=== PATIENT | female | born 1945 | race Caucasian/White ===

== ENCOUNTER → 2016-12-12 | Outpatient (REF) | payer MEDICARE, OTHER ==
[~2016-12-12] MED LIST: /ESCI20TA OR; /LAMO10TA OR; /LAMO15TA OR; /WARF25TA OR; ABILIFY PO; BISA5TA OR; CALCCHW12 OR; METFORMIN PO; MILKSUS OR; MIRALEX PO; MULTLIQ7 PO; PAIN325T OR; PERC5TAB8 OR; PERC7.5T8 OR; PRIL20CA OR; SENN8.6T5 OR; SYNT150T OR; VITA100T OR
[2016-12-18 00:06] LABS: BLASTOMYCES ANTIBODY LEVEL Negative (Neg:<1:1); CRYPTOCOCCUS ANTIGEN SER Negative (Negative); HISTOPLASMOSIS ANTIBODY Negative (Neg:<1:1); SJOGREN'S ANTI SS-A <0.2 AI (0.0-0.9); SJOGREN'S ANTI SS-B <0.2 AI (0.0-0.9)
[2016-12-18 10:14] LABS: AUREOBASIDIUM PULLULANS Negative (Negative); MICROPOLYSPORA FAENI AB Negative (Negative); PIGEON SERUM AB Negative (Negative); THERMOACTINOMYCES SACCHARI Negative (Negative); THERMOACTINOMYCES VULGARIS Negative (Negative)
[2016-12-20 15:56] LABS: COCCIDIOMYCOSIS ANTIBODY SEE SEPARATE REPORT (NEGATIVE)
== END ==
LOC: M LAB REF 17:11
PROVIDERS: ATTEND Internal Medicine Pulmonary Disease
DX: R91.8 Other nonspecific abnormal finding of lung field (principal)

== ENCOUNTER → 2017-01-09 | Outpatient (CLI) | payer MEDICARE, OTHER ==
[~2017-01-09] MED LIST changes: +ACETAMINOPHEN 325 MG TAB As Ordered ONE; +LIDOCAINE 1% MDV 20ML VIAL As Ordered ONE
--- NOTE | 2017-01-09 11:54 | REP ---
POST BIOPSY CHEST: Post biopsy expiratory PA view of the chest is performed. There is no pneumothorax status post right lung biopsy. Cardiac silhouette is prominent in size. Left single lead pacemaker is noted. There are degenerative changes of the spine. IMPRESSION: No pneumothorax status post right lung biopsy. Signed by Tera Valera MD 01/09/2017 03:56 P
--- NOTE | 2017-01-09 15:03 | REP ---
CT GUIDED RIGHT LOWER LOBE LUNG BIOPSY: The procedure was performed under the direct supervision of Dr. Valera. The patient has a history of multiple bilateral pulmonary nodules seen on a previous CT scan from [facility] performed on 10/22/2016. The risks and benefits of the procedure were explained to the patient and informed consent was obtained. The largest pulmonary nodule in the right lower lobe was localized using CT guidance. The skin was prepped and draped in a sterile fashion. 1% Xylocaine was used as a local anesthetic. Using CT guidance a 19/20-gauge coaxial needle biopsy system was inserted and advanced into the nodule. Three core biopsy samples were obtained and sent to the lab. The patient tolerated the procedure well and there were no immediate complications. After the appropriate amount of monitored convalescence the patient was discharged from the department. Reviewed by SOPHIE Puckett 01/09/2017 03:24 PEdited and Signed by Tera Valera MD 01/09/2017 03:54 P
== END ==
LOC: M RADPRO 08:15
PROVIDERS: ATTEND Internal Medicine Pulmonary Disease
DX: J98.4 Other disorders of lung (principal); J84.10 Pulmonary fibrosis, unspecified; Z79.899 Other long term (current) drug therapy; Z88.5 Allergy status to narcotic agent; Z88.8 Allergy status to other drugs, medicaments and biological substances; L25.8 Unspecified contact dermatitis due to other agents

== ENCOUNTER 2017-12-11 12:09 | Emergency (ER) | payer MEDICARE, OTHER ==
[2017-12-11 13:16] LABS: BASO % 0.5 % (0.0-1.0); EOS # 0.1 10^3/uL (0.0-0.50); EOS % 1.5 % (0.0-3.0); HEMATOCRIT 40.4 % (36.0-47.0); HEMOGLOBIN 13.1 g/dl (12.0-15.5); IMMATURE GRANULOCYTE % 0.2 % (0-3.0); LYMPH # 1.4 10^3/uL (1.5-4.5); LYMPH % 22.5 % (24.0-44.0); MEAN CORPUSCULAR HEMOGLOBIN 29.7 pg (27.0-33.0); MEAN CORPUSCULAR HGB CONC 32.4 g/dl (32.0-36.5); MEAN CORPUSCULAR VOLUME 91.6 fl (80.0-96.0); MONO # 0.6 10^3/uL (0.0-0.8); NEUTROPHILS % 66.3 % (36.0-66.0); PLATELET COUNT, AUTOMATED 174 10^3/uL (150-450); RED BLOOD COUNT 4.41 10^6/uL (4.00-5.40); RED CELL DISTRIBUTION WIDTH 13.6 % (11.5-14.5); WHITE BLOOD COUNT 6.1 10^3/uL (4.0-10.0)
[2017-12-11 13:18] LABS: VENOUS HCO3 26.5 MEQ/L (23.0-27.0); VENOUS O2 SATURATION 57.5 % (60.0-80.0); VENOUS PARTIAL PRESSURE CO2 50.7 mmHg (38.0-50.0); VENOUS PARTIAL PRESSURE O2 30.8 mmHg (30.0-50.0); VENOUS PH 7.336 UNITS (7.330-7.430); VENOUS STANDARD HCO3 23.5 MEQ/L; VENOUS TOTAL CO2 28.1 MEQ/L (24.0-28.0)
[2017-12-11 13:43] LABS: LACTIC ACID SEPSIS PROTOCOL 1.4 MMOL/L (0.4-2.0)
[2017-12-11 13:45] LABS: ALBUMIN 3.8 GM/DL (3.2-5.2); ALBUMIN/GLOBULIN RATIO 0.97 (1.00-1.93); ALKALINE PHOSPHATASE 70 U/L (45-117); ALT/SGPT 24 U/L (12-78); ANION GAP 8 MEQ/L (8-16); AST/SGOT 20 U/L (7-37); BILIRUBIN,DIRECT 0.2 MG/DL (0.0-0.2); BILIRUBIN,TOTAL 0.7 MG/DL (0.2-1.0); BLOOD UREA NITROGEN 16 MG/DL (7-18); CALCIUM LEVEL 8.8 MG/DL (8.8-10.2); CARBON DIOXIDE LEVEL 28 MEQ/L (21-32); CHLORIDE LEVEL 99 MEQ/L (98-107); CPK CREATINE PHOSPHOKINASE 257 U/L (26-192); CREATININE FOR GFR 1.06 MG/DL (0.55-1.30); GLOMERULAR FILTRATION RATE 54.6 (>39); GLUCOSE, FASTING 181 MG/DL (70-100); POTASSIUM SERUM 3.7 MEQ/L (3.5-5.1); SODIUM LEVEL 135 MEQ/L (136-145); TOTAL PROTEIN 7.7 GM/DL (6.4-8.2); TROPONIN I < 0.02 NG/ML (< 0.10)
[2017-12-11 13:51] LABS: CK-MB VALUE MASS 1.7 NG/ML (<3.6); MB/CK RELATIVE INDEX 0.66 (< OR =4); NT-PRO BNP 4625 PG/ML (<125)
[2017-12-11 14:08] LABS: C REACTIVE PROTEIN QUANTITATIV 1.07 MG/DL (0.00-0.30); INR 1.01; PROTHROMBIN TIME 13.4 SECONDS (12.4-14.5)
[2017-12-11 14:28] LABS: ERYTHROCYTE SEDIMENTATION RATE 20 mm/hr (0-30)
== END 2017-12-11 17:31 | disposition home or self-care (01) ==
LOC: M ED 12:09
DX: J40 Bronchitis, not specified as acute or chronic (principal); R91.8 Other nonspecific abnormal finding of lung field; R60.9 Edema, unspecified; E11.9 Type 2 diabetes mellitus without complications; I51.7 Cardiomegaly; F33.9 Major depressive disorder, recurrent, unspecified; G47.30 Sleep apnea, unspecified; Z98.0 Intestinal bypass and anastomosis status; Z98.890 Other specified postprocedural states; Z95.0 Presence of cardiac pacemaker; Z88.8 Allergy status to other drugs, medicaments and biological substances; Z88.5 Allergy status to narcotic agent; Z79.890 Hormone replacement therapy; Z79.899 Other long term (current) drug therapy
CPT/HCPCS: 71045

== ENCOUNTER → 2018-12-23 | Outpatient (CLI) | payer MEDICARE, OTHER ==
[~2018-12-23] MED LIST changes: -/ESCI20TA OR; -/LAMO10TA OR; -/LAMO15TA OR; -/WARF25TA OR; -ACETAMINOPHEN 325 MG TAB As Ordered ONE; +AUGM875T28 PO; +BACT400T PO; +CLOP75TA2 PO; +COUM1TAB18 OR; +GLIM2TAB PO; +HYDR-3713 PO; +IRON1TAB PO; +LAMI1TAB7 OR; +LAMI1TAB8 OR; +LEXA1TAB2 OR; -LIDOCAINE 1% MDV 20ML VIAL As Ordered ONE; +LOSA50TA88 PO; +METF500T13 PO; +METO1TAB87 PO; +PRED20TA PO; +TESS100C PO; +TRAM50TA2 PO; +VICTOZA 18MG/3ML SC; +VITA-176 PO
[2018-12-23 09:08] LABS: HEMATOCRIT 38.2 % (36.0-47.0); HEMOGLOBIN 12.1 g/dl (12.0-15.5); MEAN CORPUSCULAR HEMOGLOBIN 30.5 pg (27.0-33.0); MEAN CORPUSCULAR HGB CONC 31.7 g/dl (32.0-36.5); MEAN CORPUSCULAR VOLUME 96.2 fl (80.0-96.0); PLATELET COUNT, AUTOMATED 224 10^3/uL (150-450); RED BLOOD COUNT 3.97 10^6/uL (4.00-5.40); WHITE BLOOD COUNT 5.6 10^3/uL (4.0-10.0)
[2018-12-23 09:28] LABS: ALBUMIN 3.6 GM/DL (3.2-5.2); ALT/SGPT 15 U/L (12-78); BILIRUBIN,TOTAL 0.7 MG/DL (0.2-1.0); BLOOD UREA NITROGEN 10 MG/DL (7-18); CALCIUM LEVEL 9.3 MG/DL (8.8-10.2); CARBON DIOXIDE LEVEL 32 MEQ/L (21-32); CHLORIDE LEVEL 102 MEQ/L (98-107); CREATININE FOR GFR 0.83 MG/DL (0.55-1.30); GLOMERULAR FILTRATION RATE > 60.0 (>39); GLUCOSE, FASTING 103 MG/DL (70-100); POTASSIUM SERUM 4.3 MEQ/L (3.5-5.1); SODIUM LEVEL 138 MEQ/L (136-145)
--- NOTE | 2018-12-23 09:31 | REP ---
Clinical: Preoperative assessment for left hip arthroplasty . Comparison: 12/11/2017 . Technique: PA and lateral. Findings: The mediastinum and cardiac silhouette are normal. Pacemaker and loop recorder again noted in stable satisfactory position. The lung espinal are clear and without acute consolidation, effusion, or pneumothorax. The skeletal structures are intact and normal. Impression: 1. No acute cardiopulmonary process. Electronically Signed by Jonathan Chaves MD 12/23/2018 09:23 A
[2018-12-23 09:35] LABS: INR 1.13; PROTHROMBIN TIME 14.2 SECONDS (11.8-14.0)
[2018-12-23 10:37] LABS: ERYTHROCYTE SEDIMENTATION RATE 35 mm/hr (0-30)
--- NOTE | 2018-12-24 23:54 | ECGEPIP ---
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 ISOLATED PVCS WERE NOTED OTHERWISE NO REMARKABLE CHANGES Electronically Signed on 12-24-2018 23:54:01 EDT by Shon Pastrana
== END ==
LOC: M LAB 08:32
PROVIDERS: ATTEND Orthopaedic Surgery
DX: M16.12 Unilateral primary osteoarthritis, left hip (principal); Z95.0 Presence of cardiac pacemaker

== ENCOUNTER 2019-01-11 08:52 | Inpatient (IN) | payer MEDICARE, OTHER ==
--- NOTE | 2019-01-07 13:53 | HPE ---
DATE OF ADMISSION: 01/11/2019 ADMISSION DIAGNOSIS: Osteoarthritis left hip. HISTORY: This is a 73-year-old female patient with progressively worsening left hip pain and stiffness. She failed to improve with conservative management. She elected for surgery for continued symptoms. She has pain with weightbearing activities and activities of daily living. She has been consented by Dr. Mari for a left total hip arthroplasty. X-rays notable for end-stage degenerative changes of the left hip. Medical optimization not present for review from Dr. Fitzpatrick. Medical conditions include symptomatic osteoarthritis of the left hip, coronary artery disease with pacemaker, hypertension, hypothyroidism, depression, diabetes. PAST SURGICAL HISTORY: Includes gastric bypass surgery, partial hysterectomy, removal of gallbladder, right knee replacement, right hip replacement, pacemaker implantation. ALLERGIES: No current drug allergies. MEDICATIONS: - losartan 50 mg 1 tablet once per day - clopidogrel 75 mg, she stopped that two days ago - levothyroxine 150 mcg 1 tablet once per day - Lexapro 10 mg once per day - Prilosec 20 mg 1 tablet daily - glimepiride 2 mg 1 tablet at breakfast - Mitosin 18/3 mL 1.8 mg subcutaneous daily - metoprolol 25 mg one tablet once per day FAMILY HISTORY: Noncontributory. SOCIAL HISTORY: She does not smoke. She does not use alcohol. REVIEW OF SYSTEMS: Denies fever or chills. Denies chest pain, shortness of breath or cough. Denies difficulty breathing. She has some benign nasal congestion but no fevers or chills. No productive cough. No chest pain. No change in her bowel or bladder habits. She has pain mainly in her left hip with activities of daily living. PHYSICAL EXAMINATION: Exam today reveals alert well-nourished, well-developed female patient in distress secondary to pain. She ambulates with a walker. She has irritability when transitions from the seated to standing position. There is irritability on hip range of motion on the left side. The skin around the hip is intact. No erythema, edema or ecchymosis. She can sensate light touch on exam. It is well-perfused left lower extremity. Neck is supple without adenopathy or jugular venous distention (JVD). Lungs are clear to auscultation without rales or wheeze. Heart: Regular rate and rhythm. Abdomen: Bowel sounds are present. Vital signs: Blood pressure 140/80, pulse 77, respirations 18, height 67 inches, weight 166 pounds, temperature 99.1. LABORATORY DATA: Glucose 103, BUN 10, creatinine 0.83, sodium 138, potassium 4.3, ProTime 14.2, INR 1.13, sed rate of 35, WBC count of 5.6, RBC count of 3.97, hemoglobin 12.1, hematocrit 38.2. Chest x-ray showed no acute cardiopulmonary disease process noted. Electrocardiogram (EKG) notable for a pacemaker tracing. IMPRESSION: Symptomatic osteoarthritis of the left hip. PLAN: She has been consented by Dr. Mari for a left total hip arthroplasty.
[2019-01-11] VITALS (7 sets, daily range): BP systolic 120–164; BP diastolic 48–77
[~2019-01-11] VITALS: Ht 157.5 cm; Wt 89.1 kg
[2019-01-11] MEDS: LEVOTHYROXINE 150MCG TABLET (0.15MG) PO SCH (06:00)
[2019-01-11] MEDS ORDERED: ceFAZolin 2 GM/D5W 50 ML IV BAG (J0690 PER 500MG) As Ordered ONE (09:20)
[2019-01-11] MEDS ORDERED: TRANEXAMIC ACID 100 MG/ML 10ML VIAL As Ordered ONE (09:45)
[2019-01-11] MEDS ORDERED: ceFAZolin 1GM INJ (J0690 PER 500MG) As Ordered ONE (09:46)
[2019-01-11] MEDS ORDERED: EPINEPHrine INJ 1 MG/ML 1ML AMP As Ordered ONE (09:46)
[2019-01-11] MEDS ORDERED: BUPIVACAINE LIPOSOME/PF 1.3% 20ML VIAL (13.3MG/ML)(EXPAREL)(C9290 PER1MG) As Ordered ONE (09:46)
[2019-01-11] MEDS ORDERED: ACET1TAB55 PO (10:14)
[2019-01-11] MEDS ORDERED: PROPOFOL 200 MG/20 ML VIAL As Ordered ONE (10:14)
[2019-01-11] MEDS ORDERED: LIDOCAINE 2% INJ 100 MG/5 ML SDV (FOR ANES.) As Ordered ONE (10:14)
[2019-01-11] MEDS ORDERED: fentaNYL 100 MCG/2 ML INJECTION (J3010) As Ordered ONE (10:15)
[2019-01-11] MEDS ORDERED: MIDAZOLAM INJ 2 MG/2 ML VIAL (J2250) As Ordered ONE (10:15)
[2019-01-11] MEDS ORDERED: CALC600C3 PO (10:20)
[2019-01-11] MEDS ORDERED: LEXA1TAB PO (10:20)
[2019-01-11] MEDS ORDERED: IRON27TA2 PO (10:20)
[2019-01-11] MEDS ORDERED: SYNT150T PO (10:21)
[2019-01-11] MEDS ORDERED: MULTCAP PO (10:28)
[2019-01-11] MEDS ORDERED: B-12100T2 PO (10:28)
[2019-01-11] MEDS ORDERED: OMEP-218 PO (10:28)
--- NOTE | 2019-01-11 11:06 | HPE ---
DATE OF SERVICE: 01/11/2019 The patient is seen and examined. She wished to go ahead with a left total hip arthroplasty. She understands the nature of this, the risks of bleeding, infection, damage to nerves and vessels, persistent pain, wear loosening, dislocation, leg length inequality, blood clots, medical problems, , among others. Plan on proceeding with a left hip replacement. Preoperative clearance was obtained.
[2019-01-11] MEDS ORDERED: KETAMINE HCL 200 MG/20 ML VIAL As Ordered ONE (11:17)
[2019-01-11] MEDS ORDERED: ROCURONIUM BROMIDE 50 MG/5 ML VIAL As Ordered ONE (11:18)
[2019-01-11] MEDS ORDERED: ACETAMINOPHEN 1000MG 100ML IV BTL (OFIRMEV) (J0131 PER 10MG) As Ordered ONE (13:13)
[2019-01-11] MEDS ORDERED: ACETAMINOPHEN *IV* 1,000 MG IV ONE ×2 (13:30)
[2019-01-11] MEDS ORDERED: PERCOCET 5MG/325MG TAB PO PRN (13:30)
[2019-01-11] MEDS ORDERED: FLEET ENEMA PR PRN (13:30)
[2019-01-11] MEDS ORDERED: LR 1,000 ML IV SCH (13:30)
[2019-01-11] MEDS ORDERED: HYDROmorphone HCL 2 MG/ML 1ML VIAL (J1170) IV PRN (13:30)
[2019-01-11] MEDS ORDERED: ONDANSETRON 4MG/2ML VIAL (J2405) IV PRN (13:30)
[2019-01-11] MEDS ORDERED: fentaNYL 100 MCG/2 ML INJECTION (J3010) IV PRN (13:30)
[2019-01-11] MEDS ORDERED: HYDROMORPHONE HCL 0.5 MG/ 0.5 ML SYRINGE (J1170 PER 1) IV PRN (13:30)
[2019-01-11] MEDS ORDERED: oxyCODONE 5MG TAB As Ordered ONE (13:41)
[2019-01-11] MEDS: oxyCODONE 5MG TAB PO PRN ×2 (13:42→15:03)
--- NOTE | 2019-01-11 13:53 | RO ---
DATE OF PROCEDURE: 01/11/2019 PREOPERATIVE DIAGNOSIS: Left hip osteoarthritis. POSTOPERATIVE DIAGNOSIS: Left hip osteoarthritis. PROCEDURE: Left total hip arthroplasty using a [place] size 5 standard offset 36 + 1.5 ball, 52 acetabular component. SURGEON: Leoncio Mari MD MAINTENANCE TEAM MEMBER: Honorio Mattson PA-C ANESTHESIA: Spinal. ESTIMATED BLOOD LOSS (EBL): 200. COMPLICATIONS: None. INDICATIONS: This 73-year woman has had advanced arthritis of her left hip and could not tolerate the pain. She wished to go ahead with surgical treatment. She understood the nature and risks associated with this. DESCRIPTION OF PROCEDURE: The patient was taken to the operating room, placed in the right lateral decubitus position on the [place] positioner. All areas were padded appropriately. The left hip was prepped and draped in the usual sterile fashion. Then, a time-out was performed. I created a longitudinal incision over the lateral aspect of the hip. She had copious subcutaneous tissue that made this quite a bit more difficult. I was able to dissect down to the fascia and elevate a small plane above this. I then incised the fascia lengthwise, divided the anterior 40% of the abductor off the anterior aspect the hip, and exposed the labrum, gradually externally rotating the femur as we did so. I then dislocated the hip with the plant attendant or assistant operator's help and used a canal-initiating reamer followed by the canal-finding reamer and then the lateralizing reamer. I then reamed up to a size 5, which had good bony purchase. The neck cut was made at about a half a fingerbreadth up from the lesser trochanter. The head was removed. We then repaired the acetabulum, removed soft tissue from around the acetabulum, and then used the reamers, and I reamed up to a 51 which had good bleeding bone and good concentric reaming. I impacted in the 52 cup which is what we used on the other side and appropriate amount of anteversion and horizontal tilt. It was well seated. I had irrigated copiously prior to this. I placed the apex hole eliminator followed by the polyethylene of 36 x 52. This was impacted in place and seated. I then used the broaches on the femoral side and was able to broach up to a size 4 which had excellent solid fit proximally, and I was not able to even quite get it down to the level of the cut. Overall, very pleased with the fit and fill of the size 4. I then did a trial reduction. The +1.5 seemed to have excellent stability and range of motion. It was quite difficult to trial due to the size of her leg and body habitus but seemed to be quite stable in extension external rotation, flexion internal rotation. I did have to remove some osteophytes anteriorly on the acetabulum. I then removed the trial components and packed in the actual stem standard offset size 4 [place], and it was well seated. I then impacted on the femoral head +1.5 36, made sure this was seated, and reduced the hip, put the hip through a range of motion. I then irrigated, placed the Exparel in the deep tissues, tranexamic acid (TXA) in the deep tissues, and repaired the minimus and abductor with #1 Vicryl suture through several bony holes, then irrigated, repaired the fascia julián with #1 Vicryl suture and running Stratafix suture for a watertight closure. Irrigated, closed the subcutaneous with 2-0 Vicryl and the skin with dayana. Sterile dressing was applied. She was taken to the recovery room in stable condition. There were no known complications. The plan will be routine postoperative. The plant attendant or assistant operator was instrumental in holding retractors and assisting in reducing and dislocating the hip and assisting in wound closure. This is coded as an unusually difficult procedure due to her body habitus and weight. She had significant fatty tissue around her hip and thigh, which made the wound quite deep. I had to make much more extensive exposure and made reducing and dislocating the hip much more challenging in addition to judging soft tissue tension.
--- NOTE | 2019-01-11 13:54 | REP ---
Portable right hip, two views, post: There is a total hip arthroplasty. The components are tightly applied and in satisfactory positions alignment on both views. Skin dayana are incidentally identified. Electronically Signed by Tera Irby MD 01/11/2019 01:45 P
[2019-01-11] MEDS ORDERED: LABETALOL HCL 100 MG/20 ML VIAL As Ordered ONE (13:57)
[2019-01-11] MEDS: LABETALOL HCL 100 MG/20 ML VIAL IV SCH ×12 (14:00→20:00)
[2019-01-11] MEDS: LR 1,000 ML IV SCH (15:39)
[2019-01-11] MEDS: OMEPRAZOLE 20 MG CAP PO SCH (16:18)
[2019-01-11] MEDS: HYDROmorphone HCL 2 MG/ML 1ML VIAL (J1170) IV PRN ×2 (16:20→20:00)
[2019-01-11] MEDS: ONDANSETRON 4MG/2ML VIAL (J2405) IV PRN (16:28)
[2019-01-11] MEDS ORDERED: METO1TAB32 PO (16:48)
[2019-01-11] MEDS: **hydrALAZINE HCL** 25 MG TAB PO SCH (17:49)
[2019-01-11] MEDS: GLIMEPIRIDE 2 MG TAB PO SCH (17:49)
[2019-01-11] MEDS: ACETAMINOPHEN TAB 650MG DOSE (2X325MG) PO PRN (20:51)
[2019-01-11] MEDS: NORCO, ANEXSIA 5/325MG TABLET (HYDROcodone/ACETAMINOPHEN) PO PRN (22:15)
[2019-01-12] MEDS: HYDROmorphone HCL 2 MG/ML 1ML VIAL (J1170) IV PRN (00:35)
[2019-01-12] MEDS: **hydrALAZINE HCL** 25 MG TAB PO SCH ×5 (00:36→23:31)
--- NOTE | 2019-01-12 00:50 | HPEPDOC ---
General Date of Admission Jan 11, 2019 at 08:52 Date of Service: Jan 11, 2019 Chief Complaint The patient is a 73-year-old female admitted with a reason for visit of Arthritis Left Hip. Source: Patient, RN/MD, Old records Severity: Moderate History of Present Illness Consultation Report Consultation requested by Dr Mari Consultation for management of medical comorbidities. HPI: 73 year old female with PMH of Diabetes, Hypertension, Hyperlipidemia, Morbid obesity s/p gastric bypass surgery has lost about 100 lbs, hypothyroid, depression, CAD, pacemaker, JUANJOSE on CPAP, chronic venous insufficiency has been admitted for elective left total knee replacement. Patient had an uneventful surgery. Patient now complaining of some pain in the left hip at the surgical site about 6/10 in intensity, dull aching in nature, Worsened with movement, No radiation. Home Medications Scheduled Calcium Carbonate/Vitamin D3 (Calcium 600+D Softgel) 1 Each Capsule, 1 CAP PO BID, (Reported) Cholecalciferol (Vitamin D3) (Vitamin D3) 1,000 Unit Chw, 1,000 UNIT PO 3XW, (Reported) Cyanocobalamin (Vitamin B-12) (Vitamin B-12) 100 Mcg Tablet, 1 TAB PO DAILY, (Reported) Escitalopram Oxalate (Lexapro) 10 Mg Tablet, 1 TAB PO DAILY, (Reported) Ferrous Gluconate (Iron) 236 Mg Tablet, 27 MG PO DAILY, (Reported) Glimepiride (Glimepiride) 2 Mg Tablet, 2 MG PO BID, (Reported) Levothyroxine Sodium (Synthroid) 150 Mcg Tablet, 1 TAB PO DAILY, (Reported) Losartan Potassium (Losartan Potassium) 50 Mg Tab, 50 MG PO DAILY, (Reported) Metoprolol Succinate (Metoprolol Succinate) 25 Mg Tab.er.24h, 25 MG PO DAILY, (Reported) Multivitamin (Multivitamins) 1 Each Capsule, 1 CAP PO DAILY, (Reported) Omeprazole (Omeprazole) 20 Mg Capsule.dr, 1 CAP PO BID, (Reported) Rivaroxaban (Xarelto) 10 Mg Tablet, 10 MG PO DAILY [Victoza 18MG/3ML] , 1.2 MG SC DAILY, (Reported) Scheduled PRN Acetaminophen (Acetaminophen) 325 Mg Tablet, 2 TAB PO Q4-6HP PRN for pain or fever, (Reported) Hydrocodone/Acetaminophen (Hydrocodone-Acetamin 5-325 mg) 1 Each Tablet, 1-2 TAB PO Q4H PRN for PAIN Hydrocodone/Acetaminophen (Hydrocodone-Acetamin 5-325 mg) 1 Each Tablet, 1-2 TAB PO Q4H PRN for PAIN Allergies Coded Allergies: aspirin (Verified Adverse Reaction, Unknown, GI UPSET/ULCER, 01/11/19) morphine (Verified Adverse Reaction, Unknown, CONFUSION, 01/11/19) Past Medical History Medical History Diabetes, Hypertension, Hyperlipidemia, Morbid obesity s/p gastric bypass surgery lost about a 100 lbs, hypothyroid, depression, CAD, JUANJOSE on CPAP, chronic venous insufficiency, Afib status post ablation ans pacemaker Surgical History gastric bypass surgery, partial hysterectomy, cholecystectomy right knee replacement, right hip replacement, pacemaker implantation. Family History Significant Family History: Diabetes, Hypertension Social History * Smoker: Denies Alcohol: Denies Drugs: denies A-FIB/CHADSVASC A-FIB History Current/History of A-Fib/PAF?: Yes Current PO Anticoag Therapy: No Review of Systems Constitutional: Denies: Chills, Fever, Night Sweats Eyes: Denies: Pain, Vision change ENT: Denies: Head Aches, Ear Pain, Dysphagia Skin: Denies: Rash, Lesions, Breakdown Pulmonary: Denies: Dyspnea, Cough Cardiovascular: Denies: Chest Pain, Palpitations, Orthopnea, Paroxysmal Noc. Dyspnea, Lt Headedness Gastrointestinal: Denies: Nausea, Vomiting, Abdominal Pain, Diarrhea Hematologic: Denies: Bruising, Bleeding Excessively Musculoskeletal: Reports: Joint Pain; Denies: Neck Pain, Back Pain Physical Examination General Exam: Positive: Alert, Cooperative, No Acute Distress ENT Exam: Positive: Atraumatic, Mucous membr. moist/pink, Pharynx Normal Neck Exam: Positive: Supple; Negative: JVD, thyromegaly Chest Exam: Positive: Clear to auscultation, Normal air movement Heart Exam: Positive: Rate Normal, Regular Rhythm, Normal S1, Normal S2; Negative: Murmurs, Rubs Abdomen Exam: Positive: Normal bowel sounds, Soft; Negative: Tenderness, Hepatospenomegaly Extremity Exam: Positive: Edema, Normal pulses; Negative: Clubbing, Cyanosis Skin Exam: Positive: Nl turgor and temperature; Negative: Breakdown, Lesion Vital Signs Vital Signs Date Time Temp Pulse Resp B/P (MAP) Pulse Ox O2 Delivery O2 Flow Rate FiO2 01/11/19 10:29 96.8 61 18 169/81 (110 95 Laboratory Data CBC/BMP Laboratory Tests 01/11/19 09:21 Assessment/Plan 73 year old female with PMH of Diabetes, Hypertension, Hyperlipidemia, Morbid obesity s/p gastric bypass surgery has lost about 100 lbs, hypothyroid, depression, CAD, pacemaker, JUANJOSE on CPAP, chronic venous insufficiency, h/o afib status post ablation and has pacemaker in place has been admitted for elective left total knee replacement. Patient had an uneventful surgery. Hospitalist service is following for management of medical comorbidities. S/P Left total hip replacement pain control and DVT prophylaxis as per ortho service Bowel regimen. Diabetes continue glimepiride Hypertension continue losartan, metroprolol succinate and hydra CAD non obstructive , had cardiac cath before no intervention needed. Afib s/p ablation and Pacemaker was on plavix will hold now as going to be on oral anticoagulant. Hypothyroid continue synthroid JUANJOSE continue own CPAP Obesity complicating care Depression continue home meds. GERD continue PPI Chronic venous insufficiency congenital from teenager. Plan / VTE VTE Prophylaxis Ordered?: Yes ANGELO HINSON MD Jan 11, 2019 13:49
[2019-01-12 02:00] VITALS: BP 154/61
[2019-01-12] MEDS: ACETAMINOPHEN TAB 650MG DOSE (2X325MG) PO PRN ×2 (02:29→11:49)
[2019-01-12] MEDS: LR 1,000 ML IV SCH (03:05)
[2019-01-12] MEDS: NORCO, ANEXSIA 5/325MG TABLET (HYDROcodone/ACETAMINOPHEN) PO PRN ×5 (04:14→21:12)
[2019-01-12] MEDS: ONDANSETRON 4MG/2ML VIAL (J2405) IV PRN (04:41)
[2019-01-12] MEDS ORDERED: ONDANSETRON 4 MG TAB (S0181) PO PRN (05:45)
[2019-01-12 06:00] VITALS: BP 154/60
[2019-01-12 06:11] LABS: BASO % 0.2 % (0.0-1.0); EOS % 0.1 % (0.0-3.0); HEMATOCRIT 33.6 % (36.0-47.0); HEMOGLOBIN 11.3 g/dl (12.0-15.5); LYMPH # 1.1 10^3/uL (1.5-4.5); LYMPH % 9.3 % (24.0-44.0); MEAN CORPUSCULAR HEMOGLOBIN 31.3 pg (27.0-33.0); MEAN CORPUSCULAR HGB CONC 33.6 g/dl (32.0-36.5); MEAN CORPUSCULAR VOLUME 93.1 fl (80.0-96.0); MONO # 1.1 10^3/uL (0.0-0.8); MONO % 9.7 % (0.0-5.0); NEUTROPHILS # 9.1 10^3/uL (1.8-7.7); NEUTROPHILS % 80.3 % (36.0-66.0); PLATELET COUNT, AUTOMATED 197 10^3/uL (150-450); RED BLOOD COUNT 3.61 10^6/uL (4.00-5.40); WHITE BLOOD COUNT 11.3 10^3/uL (4.0-10.0)
[2019-01-12] MEDS: LEVOTHYROXINE 150MCG TABLET (0.15MG) PO SCH (06:19)
[2019-01-12] MEDS ORDERED: HYDR-3713 PO (06:23)
[2019-01-12] MEDS ORDERED: XARE10TA PO (06:27)
[2019-01-12 06:38] LABS: BLOOD UREA NITROGEN 11 MG/DL (7-18); CALCIUM LEVEL 8.6 MG/DL (8.8-10.2); CARBON DIOXIDE LEVEL 29 MEQ/L (21-32); CHLORIDE LEVEL 102 MEQ/L (98-107); CREATININE FOR GFR 0.83 MG/DL (0.55-1.30); GLOMERULAR FILTRATION RATE > 60.0 (>39); GLUCOSE, FASTING 138 MG/DL (70-100); POTASSIUM SERUM 4.4 MEQ/L (3.5-5.1); SODIUM LEVEL 136 MEQ/L (136-145)
[2019-01-12] MEDS: GLIMEPIRIDE 2 MG TAB PO SCH ×2 (08:36→17:41)
[2019-01-12] MEDS: ESCITALOPRAM OXALATE 10 MG TAB (LEXAPRO) PO SCH (08:37)
[2019-01-12] MEDS: OMEPRAZOLE 20 MG CAP PO SCH (08:37)
[2019-01-12] MEDS: METOPROLOL SUCC *XL* 25MG TAB (TopROL *XL*) PO SCH (08:38)
[2019-01-12] MEDS ORDERED: MORPHINE 4 MG/ML 1ML VIAL/SYRINGE (J2270) IV PRN (08:45)
[2019-01-12] MEDS: MOM 30ML SUSPENSION UDC PO SCH (09:00)
[2019-01-12] MEDS ORDERED: LOSARTAN 50 MG TAB PO SCH (09:00)
[2019-01-12] MEDS: MIRALAX *UNIT DOSE* 17GM PACKET PO SCH (09:00)
--- NOTE | 2019-01-12 09:56 | IPNPDOC ---
Date Seen The patient was seen on 01/12/19. Progress Note SUBJECTIVE: Ms. Gutierrez, a 73-year-old female who was consulted for medical management s/p left total hip replacement yesterday (01/11), was seen this morning on bedside rounds. She was laying in bed with a washcloth over her head and appeared in mild distress due to hip pain. She states that the hip pain was present after she woke up from surgery with constant 9/10 intensity this morning with no radiation. It was described as deep bone pain with the same quality as before the replacement. She states that the Dilaudid she received yesterday helped the pain substantially but she is currently having breakthrough pain and requested pain medication. She has a poor reaction to morphine, which she has received in the past and has given her confusion. She has been unable to move the leg due to extreme pain this morning but has been able to ambulate to the bathroom previously. She had an episode of dizziness, diaphoresis, and lightheadedness this morning and she felt like she was going to pass out. She also states she had an episode of nausea after receiving pain medication on an empty stomach yesterday evening which has since resolved. She has had a bowel movement this morning. She is also is requesting that her Omeprazole be changed from one a day 40mg to twice a day 20mg which is what she is used to taking at home. Patient denies chest pain, shortness of breath, current nausea, vomiting, syncope, fever, chills, or abdominal pain. OBJECTIVE PHYSICAL EXAMINATION: VITAL SIGNS: Please see below. GENERAL: Patient is seen lying in bed and is in mild distress due to 9/10 left hip pain, AAOx3, cooperative, speaking in full sentences and conversational HEENT: NC, AT, moist mucous membranes, no JVD CARDIOVASCULAR: Clear to auscultation bilaterally, no rales, rhonchi or wheezing appreciated RESPIRATORY: Regular rate and rhythm, Normal S1S2, no murmurs, rubs or gallops appreciated ABDOMINAL: Normal bowel sounds in all quadrants, soft and non-tender to light or deep palpation, no rebound, rigidity or guarding, no hepatosplenomegaly or masses appreciated EXTREMITIES: +1 pitting edema of b/l lower extremities, signs of chronic venous insufficiency, no clubbing or cyanosis, left hip bandaged, no erythema or ecchymosis around the surgical site. Unable to move left hip on exam due to 9/10 pain PSYCHOLOGICAL: Appropriate affect LABORATORY DATA, IMAGING STUDIES, MICROBIOLOGY: Please see below. IMAGING: - Hip x-ray: Portable right hip, two views, post: There is a total hip arthroplasty. The components are tightly applied and in satisfactory positions alignment on both views. Skin dayana are incidentally identified. DVT prophylaxis ordered?: Katherin ASSESSMENT AND PLAN: Ms. Gutierrez is a 73-year-old female with past medical history of Diabetes, Hypertension, Hyperlipidemia, Morbid obesity s/p gastric bypass surgery (has lost approximately 100 lbs), hypothyroidism, depression, CAD, JUANJOSE on CPAP, chronic venous insufficiency, history of A fib. s/p ablation and pacemaker implantation, who has been admitted for elective left total hip replacement. Patient had an uneventful surgery. Hospitalist service managing medical comorbidities. PROBLEMS: 1. S/P Left total hip replacement -C/w pain control and DVT prophylaxis as per ortho service -Bowel regimen. Patient has had a bowel movement today and reports no associated GI symptoms other than nausea last evening which is resolved 2. Diabetes -continue glimepiride 3. Hypertension -continue losartan, metoprolol succinate and hydralazine 4. CAD -non obstructive, had cardiac cath before no intervention needed. 5. A. fib s/p ablation and pacemaker implantation -was on plavix -will hold now as going to be on oral anticoagulant. 6. Hypothyroid -continue synthroid 7. JUANJOSE -continue own CPAP 8. Obesity -complicating care 9. Depression -continue home meds. 10. GERD -continue PPI 11. Chronic venous insufficiency -congenital from teenager. DISPOSITION: Patient is in substantial 9/10 left hip pain today s/p left total hip replacement yesterday. She has been able to ambulate to the bathroom however is currently in pain and requesting pain medication adjustment. Her surgery was uneventful and she has had a bowel movement this morning. She clinically is improving, however is having significant pain that will need to be managed before she is able to progress with PT/OT. Following orthopedic recommendations for pain control and DVT prophylaxis. VS, I&O, 24H, Fishbone Vital Signs/I&O Vital Signs Date Time Temp Pulse Resp B/P (MAP) Pulse Ox O2 Delivery O2 Flow Rate FiO2 01/12/19 08:39 18 01/12/19 08:37 150/66 01/12/19 06:00 99.1 60 96 I&O- Last 24 Hours up to 6 AM 01/12/19 06:00 Intake Total 3085 ml Output Total 550 ml Balance 2535 ml Laboratory Data 24H LABS Laboratory Tests 2 01/11/19 17:37: Bedside Glucose (Misc Panel) 179H 01/11/19 20:50: Bedside Glucose (Misc Panel) 220H 01/12/19 05:38: Immature Granulocyte % (Auto) 0.4, White Blood Count 11.3H, Red Blood Count 3. 61L, Hemoglobin 11.3L, Hematocrit 33.6L, Mean Corpuscular Volume 93.1, Mean Corpuscular Hemoglobin 31.3, Mean Corpuscular Hemoglobin Concent 33.6, Red Cell Distribution Width 12.7, Platelet Count 197, Neutrophils (%) (Auto) 80.3H, Lymphocytes (%) (Auto) 9.3L, Monocytes (%) (Auto) 9.7H, Eosinophils (%) (Auto) 0.1, Basophils (%) (Auto) 0.2, Neutrophils # (Auto) 9.1H, Lymphocytes # (Auto) 1.1L, Monocytes # (Auto) 1.1H, Eosinophils # (Auto) 0.0, Basophils # (Auto) 0.0, Nucleated Red Blood Cells % (auto) 0.0, Anion Gap 5L, Glomerular Filtration Rate > 60.0, Blood Urea Nitrogen 11, Creatinine 0.83, Sodium Level 136, Potassium Level 4.4, Chloride Level 102, Carbon Dioxide Level 29, Calcium Level 8.6L CBC/BMP Laboratory Tests 01/12/19 05:38 Red Blood Count 3.61 L, Mean Corpuscular Volume 93.1, Mean Corpuscular Hemoglobin 31.3, Mean Corpuscular Hemoglobin Concent 33.6, Red Cell Distribution Width 12.7, Neutrophils (%) (Auto) 80.3 H, Lymphocytes (%) (Auto) 9.3 L, Monocytes (%) (Auto) 9.7 H, Eosinophils (%) (Auto) 0.1, Basophils (%) (Auto) 0.2, Neutrophils # (Auto) 9.1 H, Lymphocytes # (Auto) 1.1 L, Monocytes # (Auto) 1.1 H, Eosinophils # (Auto) 0.0, Basophils # (Auto) 0.0, Calcium Level 8.6 L Attending Note Attending Note I have personally seen and examined the patient this am. I agree with the finding and the plan of care as documented above in the resident's/medical student's note. JOCY SEGAL OMS-3 Jan 12, 2019 09:56 ANGELO HINSON MD Jan 12, 2019 17:01
[2019-01-12 10:34] VITALS: BP 145/107
[2019-01-12 10:35] VITALS: BP 144/60
[2019-01-12 15:26] VITALS: BP 125/43
[2019-01-12] MEDS: RIVAROXABAN 10 MG TAB (XARELTO) PO SCH (17:41)
[2019-01-12 22:00] VITALS: BP 127/62
[2019-01-13] MEDS: NORCO, ANEXSIA 5/325MG TABLET (HYDROcodone/ACETAMINOPHEN) PO PRN ×6 (01:10→22:56)
[2019-01-13] MEDS: **hydrALAZINE HCL** 25 MG TAB PO SCH ×4 (05:41→22:57)
[2019-01-13] MEDS: LEVOTHYROXINE 150MCG TABLET (0.15MG) PO SCH (05:42)
[2019-01-13 06:00] VITALS: BP 170/68
[2019-01-13] MEDS ORDERED: XARE10TA PO (06:35)
[2019-01-13] MEDS ORDERED: HYDR-3713 PO (06:36)
[2019-01-13 07:04] LABS: BASO % 0.3 % (0.0-1.0); EOS % 0.2 % (0.0-3.0); HEMATOCRIT 34.6 % (36.0-47.0); LYMPH # 1.2 10^3/uL (1.5-4.5); MEAN CORPUSCULAR HEMOGLOBIN 30.1 pg (27.0-33.0); MEAN CORPUSCULAR HGB CONC 31.8 g/dl (32.0-36.5); MEAN CORPUSCULAR VOLUME 94.5 fl (80.0-96.0); MONO % 8.9 % (0.0-5.0); NEUTROPHILS # 8.8 10^3/uL (1.8-7.7); NEUTROPHILS % 79.1 % (36.0-66.0); PLATELET COUNT, AUTOMATED 187 10^3/uL (150-450); RED BLOOD COUNT 3.66 10^6/uL (4.00-5.40)
[2019-01-13 07:24] LABS: BLOOD UREA NITROGEN 14 MG/DL (7-18); CARBON DIOXIDE LEVEL 28 MEQ/L (21-32); CHLORIDE LEVEL 102 MEQ/L (98-107); CREATININE FOR GFR 0.86 MG/DL (0.55-1.30); GLOMERULAR FILTRATION RATE > 60.0 (>39); GLUCOSE, FASTING 155 MG/DL (70-100); POTASSIUM SERUM 4.3 MEQ/L (3.5-5.1); SODIUM LEVEL 135 MEQ/L (136-145)
--- NOTE | 2019-01-13 07:26 | IPNPDOC ---
Date Seen The patient was seen on 01/13/19. Progress Note SUBJECTIVE: Ms. Gutierrez was seen on bedside rounds this morning. She states that she is feeling much better today and appears to be in less pain today. She states that her left hip pain is a 0/10 currently at rest and increases to a 5/10 on movement with no radiation, which she believes will complicate working with physical therapy today. She states that the deep bone pain she was experiencing yesterday is improved and the pain today feels to be more in her leg muscles. She denies chest pain, shortness of breath, diaphoresis, lightheadedness, nausea, vomiting, abdominal pain, fever, and chills. OBJECTIVE PHYSICAL EXAMINATION: VITAL SIGNS: Please see below. GENERAL: Patient is seen lying in bed, no apparent distress, AAOx3, cooperative, speaking in full sentences and conversational HEENT: NC, AT, moist mucous membranes, no JVD CARDIOVASCULAR: Clear to auscultation bilaterally, no rales, rhonchi or wheezing appreciated RESPIRATORY: Regular rate and rhythm, Normal S1S2, no murmurs, rubs or gallops appreciated ABDOMINAL: Normal bowel sounds in all quadrants, soft and non-tender to light or deep palpation, no rebound, rigidity or guarding, no hepatosplenomegaly or masses appreciated EXTREMITIES: +1 pitting edema of b/l lower extremities, signs of chronic venous insufficiency, no clubbing or cyanosis, left hip bandaged, no erythema or ecchymosis around the surgical site. Unable to move left hip on exam due to 5/10 PSYCHOLOGICAL: Appropriate affect LABORATORY DATA, IMAGING STUDIES, MICROBIOLOGY: Please see below. IMAGING: - Hip x-ray: Portable right hip, two views, post: There is a total hip arthroplasty. The components are tightly applied and in satisfactory positions alignment on both views. Skin dayana are incidentally identified. DVT prophylaxis ordered?: Katherin ASSESSMENT AND PLAN: Ms. Gutierrez is a 73-year-old female with past medical history of Diabetes, Hypertension, Hyperlipidemia, Morbid obesity s/p gastric bypass surgery (has lost approximately 100 lbs), hypothyroidism, depression, CAD, JUANJOSE on CPAP, chronic venous insufficiency, history of A fib. s/p ablation and pacemaker implantation, who has been admitted for elective left total hip replacement. Patient had an uneventful surgery. Hospitalist service managing medical comorbidities. PROBLEMS: 1. S/P Left total hip replacement -C/w pain control and DVT prophylaxis as per ortho service -Bowel regimen. Patient has had a bowel movement yesterday and reports no associated GI symptoms. -C/w PT, once cleared plan for subacute rehab 2. Diabetes -continue glimepiride 3. Hypertension -continue losartan, metoprolol succinate and hydralazine 4. CAD -non obstructive, had cardiac cath before no intervention needed. 5. A. fib s/p ablation and pacemaker implantation -was on plavix -c/w Xarelto 6. Hypothyroid -continue synthroid 7. JUANJOSE -continue own CPAP 8. Obesity -complicating care 9. Depression -continue home meds. 10. GERD -continue PPI 11. Chronic venous insufficiency -congenital from teenager. DISPOSITION: Patient is clinically improving today and states that her only pain is on movement of her left hip. Continue to work with PT, following orthopedic recommendations for pain control and DVT prophylaxis. Plan for subacute rehab once cleared with PT. Discharge per orthopedic recommendation. VS, I&O, 24H, Kamaljitbone Vital Signs/I&O Vital Signs Date Time Temp Pulse Resp B/P (MAP) Pulse Ox O2 Delivery O2 Flow Rate FiO2 01/13/19 06:11 18 01/13/19 06:00 98.5 65 170/68 (102) 99 I&O- Last 24 Hours up to 6 AM 01/13/19 06:00 Intake Total 1280 ml Output Total 1900 ml Balance -620 ml Laboratory Data 24H LABS Laboratory Tests 2 01/12/19 11:49: Bedside Glucose (Misc Panel) 185H 01/12/19 16:31: Bedside Glucose (Misc Panel) 168H 01/12/19 21:29: Bedside Glucose (Misc Panel) 176H 01/13/19 06:12: Immature Granulocyte % (Auto) 0.5, White Blood Count 11.0H, Red Blood Count 3.66L, Hemoglobin 11.0L, Hematocrit 34.6L, Mean Corpuscular Volume 94.5, Mean Corpuscular Hemoglobin 30.1, Mean Corpuscular Hemoglobin Concent 31.8L, Red Cell Distribution Width 13.0, Platelet Count 187, Neutrophils (%) (Auto) 79.1H, Lymphocytes (%) (Auto) 11.0L, Monocytes (%) (Auto) 8.9H, Eosinophils (%) (Auto) 0.2, Basophils (%) (Auto) 0.3, Neutrophils # (Auto) 8.8H, Lymphocytes # (Auto) 1.2L, Monocytes # (Auto) 1.0H, Eosinophils # (Auto) 0.0, Basophils # (Auto) 0.0, Nucleated Red Blood Cells % (auto) 0.0 01/13/19 06:13: Anion Gap 5L, Glomerular Filtration Rate > 60.0, Blood Urea Nitrogen 14, Creatinine 0.86, Sodium Level 135L, Potassium Level 4.3, Chloride Level 102, Carbon Dioxide Level 28, Calcium Level 9.0 CBC/BMP Laboratory Tests 01/13/19 06:12 Red Blood Count 3.66 L, Mean Corpuscular Volume 94.5, Mean Corpuscular Hemoglobin 30.1, Mean Corpuscular Hemoglobin Concent 31.8 L, Red Cell Distribution Width 13.0, Neutrophils (%) (Auto) 79.1 H, Lymphocytes (%) (Auto) 11.0 L, Monocytes (%) (Auto) 8.9 H, Eosinophils (%) (Auto) 0.2, Basophils (%) (Auto) 0.3, Neutrophils # (Auto) 8.8 H, Lymphocytes # (Auto) 1.2 L, Monocytes # (Auto) 1.0 H, Eosinophils # (Auto) 0.0, Basophils # (Auto) 0.0 01/13/19 06:13 Calcium Level 9.0 Attending Note Attending Note I have personally seen and examined the patient this am. I agree with the finding and the plan of care as documented above resident's/ medical student's note. Patient is feeling much better today. Pain is controlled, having bowel movements. Plan of discharge as per ortho service JOCY SEGAL OMS-3 Jan 13, 2019 07:26 ANGELO HINSON MD Jan 13, 2019 14:01
[2019-01-13] MEDS: OMEPRAZOLE 20 MG CAP PO SCH (08:03)
[2019-01-13] MEDS: METOPROLOL SUCC *XL* 25MG TAB (TopROL *XL*) PO SCH (08:04)
[2019-01-13] MEDS: ESCITALOPRAM OXALATE 10 MG TAB (LEXAPRO) PO SCH (08:04)
[2019-01-13] MEDS: GLIMEPIRIDE 2 MG TAB PO SCH ×2 (08:04→17:37)
[2019-01-13] MEDS: MOM 30ML SUSPENSION UDC PO SCH (08:05)
[2019-01-13] MEDS: MIRALAX *UNIT DOSE* 17GM PACKET PO SCH (08:05)
[2019-01-13] MEDS: LOSARTAN 50 MG TAB PO SCH (08:53)
[2019-01-13] MEDS: ACETAMINOPHEN TAB 650MG DOSE (2X325MG) PO PRN (08:54)
[2019-01-13 14:15] VITALS: BP 126/67
--- NOTE | 2019-01-13 16:16 | REP ---
Left hip two views: There is a total hip arthroplasty with the components tightly applied and in in satisfactory position alignment both projections. Skin dayana are incidentally noted. Electronically Signed by Tera Irby MD 01/13/2019 04:08 P
[2019-01-13] MEDS: RIVAROXABAN 10 MG TAB (XARELTO) PO SCH (17:37)
[2019-01-13 22:00] VITALS: BP 125/60
[2019-01-14] MEDS: NORCO, ANEXSIA 5/325MG TABLET (HYDROcodone/ACETAMINOPHEN) PO PRN ×5 (04:23→23:47)
[2019-01-14 06:00] VITALS: BP 119/56
[2019-01-14] MEDS: **hydrALAZINE HCL** 25 MG TAB PO SCH ×4 (06:00→23:48)
[2019-01-14] MEDS: LEVOTHYROXINE 150MCG TABLET (0.15MG) PO SCH (06:03)
[2019-01-14 06:47] LABS: BASO % 0.2 % (0.0-1.0); EOS % 0.4 % (0.0-3.0); HEMATOCRIT 32.7 % (36.0-47.0); HEMOGLOBIN 10.5 g/dl (12.0-15.5); LYMPH % 10.7 % (24.0-44.0); MEAN CORPUSCULAR HEMOGLOBIN 30.1 pg (27.0-33.0); MEAN CORPUSCULAR HGB CONC 32.1 g/dl (32.0-36.5); MEAN CORPUSCULAR VOLUME 93.7 fl (80.0-96.0); MONO # 0.8 10^3/uL (0.0-0.8); NEUTROPHILS # 7.6 10^3/uL (1.8-7.7); NEUTROPHILS % 80.3 % (36.0-66.0); PLATELET COUNT, AUTOMATED 190 10^3/uL (150-450); RED BLOOD COUNT 3.49 10^6/uL (4.00-5.40); WHITE BLOOD COUNT 9.5 10^3/uL (4.0-10.0)
[2019-01-14 07:11] LABS: BLOOD UREA NITROGEN 17 MG/DL (7-18); CALCIUM LEVEL 8.5 MG/DL (8.8-10.2); CARBON DIOXIDE LEVEL 30 MEQ/L (21-32); CHLORIDE LEVEL 101 MEQ/L (98-107); CREATININE FOR GFR 0.68 MG/DL (0.55-1.30); GLOMERULAR FILTRATION RATE > 60.0 (>39); GLUCOSE, FASTING 157 MG/DL (70-100); POTASSIUM SERUM 4.1 MEQ/L (3.5-5.1); SODIUM LEVEL 135 MEQ/L (136-145)
[2019-01-14] MEDS: LOSARTAN 50 MG TAB PO SCH (08:20)
[2019-01-14] MEDS: ESCITALOPRAM OXALATE 10 MG TAB (LEXAPRO) PO SCH (08:20)
[2019-01-14] MEDS: OMEPRAZOLE 20 MG CAP PO SCH (08:20)
[2019-01-14] MEDS: GLIMEPIRIDE 2 MG TAB PO SCH ×2 (08:21→17:43)
[2019-01-14] MEDS: METOPROLOL SUCC *XL* 25MG TAB (TopROL *XL*) PO SCH (08:21)
[2019-01-14] MEDS: MIRALAX *UNIT DOSE* 17GM PACKET PO SCH (08:22)
[2019-01-14] MEDS: MOM 30ML SUSPENSION UDC PO SCH (08:22)
[2019-01-14 14:00] VITALS: BP 104/52
[2019-01-14] MEDS: RIVAROXABAN 10 MG TAB (XARELTO) PO SCH (17:43)
--- NOTE | 2019-01-14 18:22 | IPNPDOC ---
Text Note Date of Service The patient was seen on 01/14/19. NOTE HOSPITALIST PROGRESS NOTE SUBJECTIVE: Ms. Gutierrez examined at bedside. No new complaints or issues. Feels well and is awaiting rehab, aiming for [place]. No f/c/n/v/abd pain/cp/sob. OBJECTIVE PHYSICAL EXAMINATION: VITAL SIGNS: Please see below. GENERAL: Resting comfy, NAD, A&Ox3, fully conversant HEENT: NC, AT, moist mucous membranes, no JVD CARDIOVASCULAR: Clear to auscultation bilaterally, no rales, rhonchi or wheezing appreciated RESPIRATORY: Regular rate and rhythm, Normal S1S2, no murmurs, rubs or gallops appreciated ABDOMINAL: Normal bowel sounds in all quadrants, soft and non-tender to light or deep palpation, no rebound, rigidity or guarding EXTREMITIES: +1 pitting edema of b/l lower extremities, signs of chronic venous insufficiency, no clubbing or cyanosis, left hip bandaged, no erythema or ecchymosis around the surgical site PSYCHOLOGICAL: Appropriate affect LABORATORY DATA, IMAGING STUDIES, MICROBIOLOGY: Please see below. IMAGING: - Hip x-ray: Portable right hip, two views, post: There is a total hip arthroplasty. The components are tightly applied and in satisfactory positions alignment on both views. Skin dayana are incidentally identified. DVT prophylaxis ordered?: Xarelto ASSESSMENT AND PLAN: Ms. Gutierrez is a 73-year-old female with past medical history of Diabetes, Hypertension, Hyperlipidemia, Morbid obesity s/p gastric bypass surgery (has lost approximately 100 lbs), hypothyroidism, depression, CAD, JUANJOSE on CPAP, chronic venous insufficiency, history of A fib. s/p ablation and pacemaker implantation, who has been admitted for elective left total hip replacement. Patient had an uneventful surgery. Hospitalist service managing medical comorbidities. 1. S/P Left total hip arthroplasty 01/11, post-op day 3 -C/w pain control and DVT prophylaxis as per ortho service -Bowel regimen on board -C/w PT, once cleared plan for subacute rehab 2. Diabetes -continue glimepiride 3. Hypertension -controlled on losartan, metoprolol succinate and hydralazine 4. CAD -non obstructive, had cardiac cath before with no intervention needed. Stable 5. A. fib s/p ablation and pacemaker implantation -was on plavix & Xarelto. Currently only on Xarelto per ortho 6. Hypothyroid -continue synthroid 7. JUANJOSE -continue own CPAP 8. Obesity -complicating care 9. Depression -continue home meds. 10. GERD -continue PPI 11. Chronic venous insufficiency -congenital from teenager. DISPOSITION: Is stable & doing well from medical standpoint. Continue PT and activity as per Ortho. PFS working to get pt to her requesting subacute rehab in [place]. Discharge per orthopedic recommendation. VS,Fishbone, I+O VS, Fishbone, I+O Laboratory Tests 01/14/19 06:34 Red Blood Count 3.49 L, Mean Corpuscular Volume 93.7, Mean Corpuscular Hemoglobin 30.1, Mean Corpuscular Hemoglobin Concent 32.1, Red Cell Distribution Width 13.1, Neutrophils (%) (Auto) 80.3 H, Lymphocytes (%) (Auto) 10.7 L, Monocytes (%) (Auto) 8.0 H, Eosinophils (%) (Auto) 0.4, Basophils (%) (Auto) 0.2, Neutrophils # (Auto) 7.6, Lymphocytes # (Auto) 1.0 L, Monocytes # (Auto) 0.8, Eosinophils # (Auto) 0.0, Basophils # (Auto) 0.0, Calcium Level 8.5 L Vital Signs Date Time Temp Pulse Resp B/P (MAP) Pulse Ox O2 Delivery O2 Flow Rate FiO2 01/14/19 17:45 131/90 01/14/19 17:44 16 01/14/19 14:00 98.8 63 95 I&O- Last 24 Hours up to 6 AM 01/14/19 06:00 Intake Total 680 ml Output Total 400 ml Balance 280 ml Attending Note Attending Note I have personally seen and examined the patient this am. I agree with the finding and the plan of care as documented above in the resident's/medical student's note. today her hip pain is a little worse than yesterday . planned for dc to sub acute rehab. LAURYN STREET DO Jan 14, 2019 18:22 ANGELO HINSON MD Jan 14, 2019 19:34
[2019-01-14 22:00] VITALS: BP 108/78
[2019-01-15] MEDS: NORCO, ANEXSIA 5/325MG TABLET (HYDROcodone/ACETAMINOPHEN) PO PRN ×2 (05:24→09:22)
[2019-01-15] MEDS: **hydrALAZINE HCL** 25 MG TAB PO SCH (05:24)
[2019-01-15] MEDS: LEVOTHYROXINE 150MCG TABLET (0.15MG) PO SCH (05:24)
[2019-01-15 05:43] LABS: BASO % 0.3 % (0.0-1.0); EOS # 0.1 10^3/uL (0.0-0.50); HEMATOCRIT 32.5 % (36.0-47.0); HEMOGLOBIN 10.3 g/dl (12.0-15.5); LYMPH # 1.9 10^3/uL (1.5-4.5); LYMPH % 21.7 % (24.0-44.0); MEAN CORPUSCULAR HEMOGLOBIN 29.8 pg (27.0-33.0); MEAN CORPUSCULAR HGB CONC 31.7 g/dl (32.0-36.5); MEAN CORPUSCULAR VOLUME 93.9 fl (80.0-96.0); MONO # 0.6 10^3/uL (0.0-0.8); MONO % 7.1 % (0.0-5.0); NEUTROPHILS # 6.1 10^3/uL (1.8-7.7); NEUTROPHILS % 69.4 % (36.0-66.0); PLATELET COUNT, AUTOMATED 225 10^3/uL (150-450); RED BLOOD COUNT 3.46 10^6/uL (4.00-5.40); WHITE BLOOD COUNT 8.8 10^3/uL (4.0-10.0)
[2019-01-15 06:00] VITALS: BP 179/70
[2019-01-15 06:06] LABS: BLOOD UREA NITROGEN 18 MG/DL (7-18); CARBON DIOXIDE LEVEL 30 MEQ/L (21-32); CHLORIDE LEVEL 102 MEQ/L (98-107); CREATININE FOR GFR 0.81 MG/DL (0.55-1.30); GLOMERULAR FILTRATION RATE > 60.0 (>39); GLUCOSE, FASTING 166 MG/DL (70-100); POTASSIUM SERUM 4.1 MEQ/L (3.5-5.1); SODIUM LEVEL 136 MEQ/L (136-145)
[2019-01-15] MEDS: GLIMEPIRIDE 2 MG TAB PO SCH (07:55)
[2019-01-15 07:56] VITALS: BP 179/70
[2019-01-15] MEDS: ESCITALOPRAM OXALATE 10 MG TAB (LEXAPRO) PO SCH (07:56)
[2019-01-15] MEDS: OMEPRAZOLE 20 MG CAP PO SCH (07:56)
[2019-01-15] MEDS: METOPROLOL SUCC *XL* 25MG TAB (TopROL *XL*) PO SCH (07:56)
[2019-01-15] MEDS: LOSARTAN 50 MG TAB PO SCH (07:56)
[2019-01-15] MEDS: MOM 30ML SUSPENSION UDC PO SCH (07:57)
[2019-01-15] MEDS: MIRALAX *UNIT DOSE* 17GM PACKET PO SCH (07:58)
== END 2019-01-15 09:55 | DRG 470 ==
LOC: M OR 08:52 → M MS5PR 15:25
PROVIDERS: ADMIT Orthopaedic Surgery; ATTEND Orthopaedic Surgery
PROC: 0SRB02Z Replacement of Left Hip Joint with Metal on Polyethylene Synthetic Substitute, Open Approach (ICD-10-PCS; principal; 2019-01-11 11:00)
DX: M16.12 Unilateral primary osteoarthritis, left hip (principal); I25.10 Atherosclerotic heart disease of native coronary artery without angina pectoris; I10 Essential (primary) hypertension; E03.9 Hypothyroidism, unspecified; F32.9 Major depressive disorder, single episode, unspecified; E11.9 Type 2 diabetes mellitus without complications; R26.89 Other abnormalities of gait and mobility; E78.5 Hyperlipidemia, unspecified; G47.33 Obstructive sleep apnea (adult) (pediatric); E66.9 Obesity, unspecified; I87.2 Venous insufficiency (chronic) (peripheral); Z95.0 Presence of cardiac pacemaker; Z79.84 Long term (current) use of oral hypoglycemic drugs; Z79.899 Other long term (current) drug therapy; Z98.84 Bariatric surgery status; Z96.651 Presence of right artificial knee joint; Z96.641 Presence of right artificial hip joint; Z90.49 Acquired absence of other specified parts of digestive tract; Z88.5 Allergy status to narcotic agent; Z88.6 Allergy status to analgesic agent; Z68.36 Body mass index [BMI] 36.0-36.9, adult; Z79.02 Long term (current) use of antithrombotics/antiplatelets

== ENCOUNTER 2019-07-28 07:13 | Inpatient (IN) | payer MEDICARE, BC ==
--- NOTE | 2019-07-23 20:53 | HPE ---
DATE OF ADMISSION: 07/28/2019 ATTENDING PHYSICIAN: Dr. Leoncio Mari CHIEF COMPLAINT: Left knee pain and stiffness. HISTORY OF PRESENT ILLNESS: This is a pleasant 74-year-old female patient with progressively worsening left knee pain and stiffness that has failed to improve with conservative management. She has elected for left total knee arthroplasty for her continued symptoms and has been consented by Dr. Leoncio Mari. ALLERGIES: ADHESIVE, ASPIRIN, MORPHINE CURRENT MEDICATIONS: - omeprazole 20 mg one p.o. daily - Lexapro 10 mg one p.o. daily - levothyroxine 150 mcg one p.o. daily - clopidogrel 75 mg one p.o. daily - calcium D 301 p.o. daily - multivitamin two p.o. daily - vitamin B12 one p.o. daily - vitamin D3 one p.o. daily - metoprolol 25 mg one p.o. daily - duloxetine 20 mg one p.o. daily - amlodipine 5 mg one p.o. daily - losartan 100 mg one p.o. daily - Victoza as directed PAST MEDICAL HISTORY: Hypothyroidism, depression with anxiety, hypertension, hyperlipidemia, vertigo, obesity, atrial fibrillation, obstructive sleep apnea, pacemaker placement, lung nodules on CT, vitamin D deficiency, nonsustained V-tach. PAST SURGICAL HISTORY: Gastric bypass, hysterectomy, cholecystectomy, right knee total arthroplasty, right hip total arthroplasty, loop recorder, pacemaker, lung biopsy, cardiac ablation, left hip arthroplasty. FAMILY HISTORY: Father heart disease. Mother diabetes, hypertension. SOCIAL HISTORY: The patient does not use tobacco or alcohol. REVIEW OF SYSTEMS: Denies fever, chills, chest pain, shortness of breath, nausea, vomiting, diarrhea. No reports of any recent upper respiratory or urinary tract infected symptoms. PHYSICAL EXAMINATION: Height 5 feet 2-1/2 inches, weight 194.6, temperature 97 degrees, blood pressure 132/81, respirations 15, pulse 64. She is normocephalic, atraumatic and in no apparent distress. Neck is supple and nontender with no lymphadenopathy or jugular venous distention (JVD). Abdomen is soft and nontender. S1, S2 auscultated. Lungs are clear to auscultation bilaterally with no wheezes, rales, rhonchi. The left lower extremity is well perfused and has intact range of motion. The overlying skin is intact. LABORATORIES: White blood count 5.47, red blood count 4.30, hemoglobin 12.4, hematocrit 40.2, BUN 14, creatinine 0.772, INR 1.06. ESR 22. Chest x-ray with no focal consolidation. Echocardiogram is unavailable at today's visit. Medical optimization by Dr. Fitzpatrick reviewed today and on chart. Cardiology clearance and repeat echocardiogram per the patient completed but not available today for review. ASSESSMENT/PLAN: Symptomatic degenerative the left knee pain. PLAN: Consented for left knee total arthroplasty by Dr. Mari pending cardiology clearance. The patient will hold Plavix starting tomorrow for a week prior to surgery. Other preoperative instructions were discussed and the patient voiced understanding.
[~2019-07-28] VITALS: Ht 157.5 cm; Wt 89.5 kg
[~2019-07-28 07:13] MED LIST changes: +ACET1TAB55 PO; +B-12100T2 PO; +CALC600C3 PO; +CYMB1CAP4 PO; -GLIM2TAB PO; +GLIM2TAB4 PO; +IRON27TA2 PO; +LEXA1TAB PO; +LR 1,000 ML IV ONE; +METO1TAB32 PO; +MIDAZOLAM INJ 2 MG/2 ML VIAL (J2250) IV SCH; +MULTCAP PO; +NORV5TAB PO; +OMEP-218 PO; +SYNT150T PO; +VITA200038 PO; +XARE10TA PO; +ceFAZolin SOD 2 GM in IV 1 EA IV ONE; +fentaNYL 100 MCG/2 ML INJECTION (J3010) IV SCH
[2019-07-28 07:46] LABS: HEMATOCRIT 41.1 % (36.0-47.0); HEMOGLOBIN 12.8 g/dl (12.0-15.5); MEAN CORPUSCULAR HEMOGLOBIN 29.2 pg (27.0-33.0); MEAN CORPUSCULAR HGB CONC 31.1 g/dl (32.0-36.5); MEAN CORPUSCULAR VOLUME 93.6 fl (80.0-96.0); PLATELET COUNT, AUTOMATED 210 10^3/uL (150-450); RED BLOOD COUNT 4.39 10^6/uL (4.00-5.40); WHITE BLOOD COUNT 5.8 10^3/uL (4.0-10.0)
[2019-07-28] MEDS ORDERED: TRANEXAMIC ACID 100 MG/ML 10ML VIAL As Ordered ONE (07:48)
[2019-07-28] MEDS ORDERED: ceFAZolin 1GM INJ (J0690 PER 500MG) As Ordered ONE (07:48)
[2019-07-28] MEDS ORDERED: EPINEPHrine INJ 1 MG/ML 1ML VIAL As Ordered ONE (07:49)
[2019-07-28] MEDS ORDERED: BUPIVACAINE LIPOSOME/PF 1.3% 20ML VIAL (13.3MG/ML)(EXPAREL)(C9290 PER1MG) As Ordered ONE (07:49)
--- NOTE | 2019-07-28 07:56 | IPN ---
DATE: 07/28/2019 The patient is seen and examined. She wished to go ahead with a left total knee arthroplasty. She understands the nature of the procedure and the risks of bleeding, infection, damage to nerves, vessels, persistent pain, wear, loosening, blood clots, medical problems, among others. She understands that her morbid obesity significantly increases the risks of perioperative complications.
[2019-07-28 07:59] LABS: BLOOD UREA NITROGEN 15 MG/DL (7-18); CALCIUM LEVEL 8.6 MG/DL (8.8-10.2); CARBON DIOXIDE LEVEL 26 MEQ/L (21-32); CHLORIDE LEVEL 109 MEQ/L (98-107); CREATININE FOR GFR 0.77 MG/DL (0.55-1.30); GLOMERULAR FILTRATION RATE > 60.0 (>39); GLUCOSE, FASTING 137 MG/DL (70-100); POTASSIUM SERUM 4.4 MEQ/L (3.5-5.1); SODIUM LEVEL 139 MEQ/L (136-145)
[2019-07-28] MEDS ORDERED: fentaNYL 100 MCG/2 ML INJECTION (J3010) As Ordered ONE ×2 (08:46→09:44)
[2019-07-28] MEDS ORDERED: MIDAZOLAM INJ 2 MG/2 ML VIAL (J2250) As Ordered ONE ×2 (08:47→09:44)
[2019-07-28] MEDS ORDERED: propofoL 200 MG/20 ML VIAL As Ordered ONE (08:56)
[2019-07-28] MEDS ORDERED: ROCURONIUM BROMIDE 50 MG/5 ML VIAL As Ordered ONE (08:56)
[2019-07-28] MEDS ORDERED: dexameTHASONE 4 MG/ML 1ML VIAL (J1100) As Ordered ONE (09:44)
[2019-07-28] MEDS ORDERED: LIDOCAINE 2% INJ 100 MG/5 ML SDV (FOR ANES.) As Ordered ONE (09:44)
[2019-07-28] MEDS ORDERED: PHENYLephrine HCL 500 MCG/5 ML (100MCG/ML) SYRINGE (J2370) As Ordered ONE (09:44)
[2019-07-28] MEDS ORDERED: HYDROmorphone HCL 2 MG/ML 1ML VIAL (J1170) As Ordered ONE (09:44)
[2019-07-28] MEDS ORDERED: ONDANSETRON 4MG/2ML VIAL (J2405) As Ordered ONE (09:44)
[2019-07-28] MEDS ORDERED: SUGAMMADEX SODIUM 500 MG/5 ML VIAL (BRIDION) As Ordered ONE (10:33)
[2019-07-28] MEDS ORDERED: EPINEPHrine INJ 1 MG/ML 1ML VIAL ONE (10:35)
[2019-07-28] MEDS ORDERED: ROPIvacaine 0.5% 30 ML INJECTION (J2795 PER 1MG) ONE (10:35)
[2019-07-28] MEDS ORDERED: dexameTHASONE 10 MG/1 ML VIAL PRES.FREE (J1100) ONE (10:35)
[2019-07-28] MEDS ORDERED: ACETAMINOPHEN 1000MG 100ML IV BTL (OFIRMEV) (J0131 PER 10MG) As Ordered ONE (10:36)
[2019-07-28] MEDS ORDERED: HYDROMORPHONE HCL 0.5 MG/ 0.5 ML SYRINGE (J1170 PER 1) As Ordered ONE (11:11)
[2019-07-28] MEDS: HYDROMORPHONE HCL 0.5 MG/ 0.5 ML SYRINGE (J1170 PER 1) IV PRN ×4 (11:12→11:35)
[2019-07-28] MEDS ORDERED: LR 1,000 ML IV SCH (11:15)
[2019-07-28] MEDS ORDERED: fentaNYL 100 MCG/2 ML INJECTION (J3010) IV PRN (11:15)
[2019-07-28] MEDS ORDERED: oxyCODONE 5MG TAB PO PRN (11:15)
[2019-07-28] MEDS ORDERED: ONDANSETRON 4MG/2ML VIAL (J2405) IV PRN ×2 (11:15→12:15)
--- NOTE | 2019-07-28 11:41 | REP ---
LEFT KNEE, TWO VIEWS: Two views of the left knee are performed. There is placement of a total knee prosthesis. Osseous structures are intact and are well aligned. Prosthetic components are in good position. Metallic skin dayana are seen anteriorly. Linear vascular calcifications are seen posteromedially. Electronically Signed by Tera Valera MD 07/28/2019 11:00 P
[2019-07-28] MEDS: LR 1,000 ML IV SCH (12:15)
[2019-07-28 13:45] VITALS: BP 146/75
[2019-07-28] MEDS ORDERED: HYDROMORPHONE HCL 0.5 MG/ 0.5 ML SYRINGE (J1170 PER 1) IV PRN ×2 (14:15)
[2019-07-28 14:45] VITALS: BP 145/74
[2019-07-28 16:00] VITALS: BP 144/71
[2019-07-28 17:00] VITALS: BP 143/70
[2019-07-28] MEDS: ceFAZolin SOD 2 GM in IV 1 EA IV SCH (17:14)
[2019-07-28] MEDS: PERCOCET 5MG/325MG TAB PO PRN (17:18)
[2019-07-28 18:00] VITALS: BP 147/70
--- NOTE | 2019-07-28 19:14 | CR.PDOC ---
General Date of Consultation: Jul 28, 2019 Consultation REASON FOR CONSULTATION/CHIEF COMPLAINT: Physical evaluation HISTORY OF PRESENT ILLNESS: Patient 74 years old female with past history of hypothyroidism, anxiety, depression, hypertension, sleep apnea presented hospital for planned left knee arthroplasty. Surgery was done today, patient denies any fever, chills, nausea, vomiting, diarrhea or dysuria. ALLERGIES: Please see below. HOME MEDICATIONS: Please see below. PAST MEDICAL HISTORY: Hypothyroidism, depression with anxiety, hypertension, hyperlipidemia, vertigo, obesity, atrial fibrillation, obstructive sleep apnea, pacemaker placement, lung nodules on CT, vitamin D deficiency PAST SURGICAL HISTORY: Gastric bypass, hysterectomy, cholecystectomy, right knee total arthroplasty, right hip total arthroplasty, loop recorder, pacemaker, lung biopsy, cardiac ablation, left hip arthroplasty. FAMILY HISTORY: Father heart disease. Mother diabetes, hypertension. SOCIAL HISTORY: Tobacco use: Denies ETOH: Denies Illicit drug use: Denies REVIEW OF SYSTEMS: 10 point review system negative except listed above PHYSICAL EXAMINATION: VITAL SIGNS: Please see below. GENERAL APPEARANCE: not in apparent distress HEENT: Normocephalic, atraumatic. Mucous members moist and pink CARDIOVASCULAR: Regular rate and rhythm. No murmurs, rubs or gallops. Radial pulses are intact. There is no lower extremity edema LUNGS: Diminished lung sounds ABDOMEN: Abdomen is soft and nontender. MUSCULOSKELETAL: Limited range of motion of the left knee, dressing over left knee NEUROLOGICAL: Cranial nerves II-12 are grossly intact. Speech is not dysarthric LABORATORY DATA: Please see below. ASSESSMENT/PLAN: Patient 74 years old female with past history of hypothyroidism, anxiety, depression, hypertension, sleep apnea presented hospital for planned left knee arthroplasty. Surgery was done today, patient denies any fever, chills, nausea, vomiting, diarrhea or dysuria. Hypertension Continue home medication Blood pressures under control Obstructive sleep apnea CPAP overnight Atrial fibrillation Heart rate is under control Patient was not on the anticoagulation therapy due to frequent fall Hypothyroidism Continue levothyroxine Depression continue Lexapro Vital Signs/I&O Vital Signs Date Time Temp Pulse Resp B/P (MAP) Pulse Ox O2 Delivery O2 Flow Rate FiO2 07/28/19 17:48 18 07/28/19 16:00 98.3 64 144/71 (95) 95 Room Air 07/28/19 14:45 2.0 07/28/19 11:28 100 Laboratory Data Labs 24H Laboratory Tests 2 07/28/19 07:36: Nucleated Red Blood Cells % (auto) 0.0, Anion Gap 4L, Glomerular Filtration Rate > 60.0, Calcium Level 8.6L CBC/BMP Laboratory Tests 07/28/19 07:36 Allergies Coded Allergies: aspirin (Verified Adverse Reaction, Unknown, GI UPSET/ULCER, 01/11/19) morphine (Verified Adverse Reaction, Unknown, CONFUSION, 01/11/19) Home Medications Scheduled Amlodipine Besylate (Norvasc) 5 Mg Tablet, 5 MG PO DAILY, (Reported) Calcium Carbonate/Vitamin D3 (Calcium 600+D Softgel) 1 Each Capsule, 1 CAP PO BID for 30 Days, #60 (Reported) Cholecalciferol (Vitamin D3) (Vitamin D3) 2,000 Unit Tablet, 2,000 UNIT PO 3XW, (Reported) Clopidogrel Bisulfate (Clopidogrel) 75 Mg Tablet, 75 MG PO DAILY, (Reported) Cyanocobalamin (Vitamin B-12) (Vitamin B-12) 100 Mcg Tablet, 1 TAB PO DAILY for 30 Days, #30 (Reported) Duloxetine HCl (Cymbalta) 20 Mg Capsule.dr, 20 MG PO DAILY, (Reported) Escitalopram Oxalate (Lexapro) 10 Mg Tablet, 1 TAB PO DAILY for 30 Days, #30 (Reported) Ferrous Gluconate (Iron) 236 Mg Tablet, 27 MG PO DAILY, (Reported) Levothyroxine Sodium (Synthroid) 150 Mcg Tablet, 1 TAB PO DAILY for 30 Days, #30 (Reported) Losartan Potassium (Losartan Potassium) 50 Mg Tab, 100 MG PO DAILY, (Reported) Metoprolol Succinate (Metoprolol Succinate) 25 Mg Tab.er.24h, 25 MG PO DAILY for 30 Days, #30 (Reported) Multivitamin (Multivitamins) 1 Each Capsule, 1 CAP PO DAILY for 30 Days, #30 (Reported) Omeprazole (Omeprazole) 20 Mg Capsule.dr, 1 CAP PO BID for 30 Days, #60 (Reported) [Victoza 18MG/3ML] , 1.2 MG SC DAILY, (Reported) Scheduled PRN Acetaminophen (Acetaminophen) 325 Mg Tablet, 2 TAB PO Q4-6HP PRN for pain or fever for 24 Days, #100 (Reported) AMMY HOLLY DO Jul 28, 2019 19:14
[2019-07-28] MEDS ORDERED: DEXTROSE 50% 50 ML SYRINGE IV PRN (19:30)
[2019-07-28] MEDS ORDERED: GLUCOSE 4 GM CHEW TABLET PO PRN (19:30)
[2019-07-28] MEDS ORDERED: GLUCAGON FOR INJ 1 MG VIAL (J1610) SC PRN (19:30)
[2019-07-28] MEDS: OMEPRAZOLE 20 MG CAP PO SCH (20:38)
[2019-07-28] MEDS: SODIUM CHLORIDE 0.9% NASAL GEL 15GM (AYR) SCH (20:38)
[2019-07-28] MEDS: HumaLOG INSULIN (NovoLOG) PER UNIT SC SCH (20:38)
[2019-07-28 22:00] VITALS: BP 139/68
[2019-07-29] MEDS: ceFAZolin SOD 2 GM in IV 1 EA IV SCH (00:09)
[2019-07-29] MEDS: PERCOCET 5MG/325MG TAB PO PRN ×4 (00:09→17:53)
[2019-07-29] MEDS: ACETAMINOPHEN TAB 650MG DOSE (2X325MG) PO PRN (04:41)
[2019-07-29] MEDS: LR 1,000 ML IV SCH (05:51)
[2019-07-29 06:00] VITALS: BP 144/68
[2019-07-29] MEDS ORDERED: PERCOCET 5MG/325MG TAB PO PRN (06:15)
[2019-07-29] MEDS: LEVOTHYROXINE 150MCG TABLET (0.15MG) PO SCH (06:19)
[2019-07-29] MEDS: HumaLOG INSULIN (NovoLOG) PER UNIT SC SCH ×4 (07:30→21:00)
[2019-07-29] MEDS: ESCITALOPRAM OXALATE 10 MG TAB (LEXAPRO) PO SCH (08:01)
[2019-07-29] MEDS: LOSARTAN 50 MG TAB PO SCH (08:01)
[2019-07-29] MEDS: METOPROLOL SUCC *XL* 25MG TAB (TopROL *XL*) PO SCH (08:01)
[2019-07-29] MEDS: DULoxetine 20 MG CAP (CYMBALTA) PO SCH (08:01)
[2019-07-29] MEDS: amLODIPine 5 MG TAB PO SCH (08:02)
[2019-07-29] MEDS: OMEPRAZOLE 20 MG CAP PO SCH ×2 (08:02→20:29)
[2019-07-29] MEDS: MOM 30ML SUSPENSION UDC PO SCH ×2 (08:02→08:06)
[2019-07-29] MEDS: SODIUM CHLORIDE 0.9% NASAL GEL 15GM (AYR) SCH ×4 (08:03→20:29)
[2019-07-29] MEDS: MIRALAX *UNIT DOSE* 17GM PACKET PO SCH (08:06)
[2019-07-29] MEDS ORDERED: CLOPIDOGREL 75 MG TAB PO SCH (09:00)
--- NOTE | 2019-07-29 09:48 | RO ---
DATE OF PROCEDURE: 07/28/2019 PREOPERATIVE DIAGNOSIS: Left knee osteoarthritis, advanced. POSTOPERATIVE DIAGNOSIS: Left knee osteoarthritis, advanced. PROCEDURE: Left total knee arthroplasty using an Attune rotating platform posterior stabilized size 5 femur size 4 tibial tray size 12 polyethylene 35 patellar button. SURGEON: Dr. Leoncio Mari ENTERTAINMENT & MEDIA CORRESPONDENT: Honorio Mattson ANESTHESIA: General. ESTIMATED BLOOD LOSS: 50. COMPLICATIONS: None. PROCEDURE: The patient was taken to the operating room, placed in the supine position after general anesthesia was induced. General was selected due to the fact that she had been off her Plavix for 6 days. We prepped and draped the knee in the usual sterile fashion. Time-out was performed. Tourniquet was inflated. I then created a longitudinal incision over the anterior aspect the knee and sharp dissection was carried down through subcutaneous tissue until the fascia was encountered. I then made a curvilinear incision over the knee around the medial parapatellar region. Everted the patella, flexed the knee up, she had severe arthritis, multiple large osteophytes. I then used the canal finding reamer followed by the intramedullary guide. I did set at 7 degrees of valgus which matched her anatomy a little bit better and I did take an additional two off the end of the femur because of flexion contracture. It was evident that her MCL was somewhat attenuated right from the beginning. I then sized the femur after the distal femoral cut was made and sized to be a 5, this was pinned in place with the external rotation dialed in the remaining cuts were made. I then directed attention to the tibia. The proximal tibia cut was made and the appropriate amount of valgus and posterior slope and this bone was removed. I also elect to go ahead with a posterior stabilized due to significant deformity and the box cut was made in the usual fashion. The tray was prepared sizing it to be a 4 with the drill and broach being placed. I had also removed soft tissue and osteophytes from each side of the knee. Her bone was very soft throughout the procedure. There were very large osteophytes a loose bodies in the posterior knee. The spacer blocks were then used and again did have some attenuation of the medial collateral ligament. She was in a slight bit more of valgus than I wanted so I ended up re-cutting the proximal tibia slightly with the guide and taking a little bit more off laterally. Overall very pleased the alignment at this point. And the spacer block size 12 fit nicely and had good soft tissue balance. I then placed the trial components, put the knee through range of motion, was pleased the alignment and position of the components. The patella was then cut freehand removing about 6 mm of bone, it was a very thin patella and it was dished out in the center portion so I actually had to leave a little bit of it uncut for risk of making too thin of a patella. The drill holes were placed, a 35 button was placed, I did have to a lateral release in order to get the patella to track, but overall very pleased with the position. I then removed instrumentation and the components placed the Exparel in the deep tissues. The outpatient physical therapist assistant prepared the bone cement in modern technique. I irrigated, dried the bony surfaces and cemented in the components in the usual fashion. Removed excess bone cement. Patellar clamp was held in place so the patella was cemented in and the cement was hard. The patella tracked very nicely. The knee had good stability. Good alignment noted. Final deep irrigation was performed. TXA was placed and deep layer was closed #1 Vicryl suture in running Stratafix suture with final irrigation just prior to deep wound closure. I then closed subcu with 2-0 Vicryl, the skin with dayana. A sterile dressing was applied. Tourniquet was deflated. She was taken to recovery room in stable condition. There was no known complications. Plan will be routine postop. The outpatient physical therapist assistant was instrumental in holding retractors and assisting in mixing the bone cement and assisting in wound closure. This is coded as an unusually difficult procedure due to the patient's morbid obesity, significantly large obese leg, the soft tissue impinged behind the knee which made soft tissue balancing more difficult her bones very soft, overall this added to the significant complexity and duration of the case. She also had a fair amount of deformity that had to be corrected.
[2019-07-29 10:00] VITALS: BP 124/57
[2019-07-29 14:00] VITALS: BP 125/57
[2019-07-29] MEDS: RIVAROXABAN 10 MG TAB (XARELTO) PO SCH (16:39)
[2019-07-29 18:00] VITALS: BP 123/57
[2019-07-29 20:49] VITALS: BP 130/58
[2019-07-29] MEDS ORDERED: NORCO, ANEXSIA 5/325MG TABLET (HYDROcodone/ACETAMINOPHEN) PO PRN (21:30)
[2019-07-30] MEDS: NORCO, ANEXSIA 5/325MG TABLET (HYDROcodone/ACETAMINOPHEN) PO PRN ×4 (01:23→20:30)
[2019-07-30] MEDS: LEVOTHYROXINE 150MCG TABLET (0.15MG) PO SCH (05:43)
[2019-07-30 05:54] VITALS: BP 142/58
[2019-07-30 07:02] LABS: HEMATOCRIT 31.4 % (36.0-47.0); MEAN CORPUSCULAR HEMOGLOBIN 29.5 pg (27.0-33.0); MEAN CORPUSCULAR HGB CONC 31.8 g/dl (32.0-36.5); MEAN CORPUSCULAR VOLUME 92.6 fl (80.0-96.0); PLATELET COUNT, AUTOMATED 157 10^3/uL (150-450); RED BLOOD COUNT 3.39 10^6/uL (4.00-5.40); WHITE BLOOD COUNT 8.2 10^3/uL (4.0-10.0)
[2019-07-30] MEDS ORDERED: HYDR-3713 PO (07:11)
[2019-07-30] MEDS ORDERED: XARE10TA PO (07:11)
[2019-07-30] MEDS: HumaLOG INSULIN (NovoLOG) PER UNIT SC SCH ×4 (07:30→20:31)
[2019-07-30] MEDS: MIRALAX *UNIT DOSE* 17GM PACKET PO SCH (08:35)
[2019-07-30] MEDS: MOM 30ML SUSPENSION UDC PO SCH (08:35)
[2019-07-30] MEDS: DULoxetine 20 MG CAP (CYMBALTA) PO SCH (08:36)
[2019-07-30] MEDS: METOPROLOL SUCC *XL* 25MG TAB (TopROL *XL*) PO SCH (08:36)
[2019-07-30] MEDS: ESCITALOPRAM OXALATE 10 MG TAB (LEXAPRO) PO SCH (08:36)
[2019-07-30] MEDS: amLODIPine 5 MG TAB PO SCH (08:36)
[2019-07-30] MEDS: LOSARTAN 50 MG TAB PO SCH (08:36)
[2019-07-30] MEDS: OMEPRAZOLE 20 MG CAP PO SCH ×2 (08:36→20:30)
[2019-07-30] MEDS: SODIUM CHLORIDE 0.9% NASAL GEL 15GM (AYR) SCH ×4 (08:37→20:31)
[2019-07-30 14:00] VITALS: BP 133/58
[2019-07-30] MEDS: RIVAROXABAN 10 MG TAB (XARELTO) PO SCH (17:24)
[2019-07-30 20:23] VITALS: BP 131/62
[2019-07-31] MEDS: NORCO, ANEXSIA 5/325MG TABLET (HYDROcodone/ACETAMINOPHEN) PO PRN ×4 (02:42→18:44)
[2019-07-31 06:00] VITALS: BP 138/59
[2019-07-31] MEDS: LEVOTHYROXINE 150MCG TABLET (0.15MG) PO SCH (06:45)
[2019-07-31] MEDS: HumaLOG INSULIN (NovoLOG) PER UNIT SC SCH ×4 (07:55→20:48)
[2019-07-31] MEDS: LOSARTAN 50 MG TAB PO SCH (07:56)
[2019-07-31] MEDS: ESCITALOPRAM OXALATE 10 MG TAB (LEXAPRO) PO SCH (07:56)
[2019-07-31] MEDS: DULoxetine 20 MG CAP (CYMBALTA) PO SCH (07:56)
[2019-07-31] MEDS: amLODIPine 5 MG TAB PO SCH (07:56)
[2019-07-31] MEDS: OMEPRAZOLE 20 MG CAP PO SCH ×2 (07:56→20:54)
[2019-07-31] MEDS: MOM 30ML SUSPENSION UDC PO SCH (07:57)
[2019-07-31] MEDS: SODIUM CHLORIDE 0.9% NASAL GEL 15GM (AYR) SCH ×5 (07:57→20:56)
[2019-07-31] MEDS: METOPROLOL SUCC *XL* 25MG TAB (TopROL *XL*) PO SCH (07:57)
[2019-07-31] MEDS: MIRALAX *UNIT DOSE* 17GM PACKET PO SCH (07:57)
[2019-07-31 14:00] VITALS: BP 116/79
[2019-07-31] MEDS: RIVAROXABAN 10 MG TAB (XARELTO) PO SCH (17:50)
[2019-07-31] MEDS ORDERED: ONDANSETRON 4 MG TAB (S0181) PO PRN (18:15)
[2019-07-31 22:00] VITALS: BP 135/56
[2019-08-01] MEDS: ACETAMINOPHEN TAB 650MG DOSE (2X325MG) PO PRN (00:18)
[2019-08-01] MEDS: NORCO, ANEXSIA 5/325MG TABLET (HYDROcodone/ACETAMINOPHEN) PO PRN ×3 (03:21→20:52)
[2019-08-01] MEDS: LEVOTHYROXINE 150MCG TABLET (0.15MG) PO SCH (05:31)
[2019-08-01 06:16] VITALS: BP 133/57
[2019-08-01] MEDS: HumaLOG INSULIN (NovoLOG) PER UNIT SC SCH ×4 (08:20→20:53)
[2019-08-01] MEDS: LOSARTAN 50 MG TAB PO SCH (08:21)
[2019-08-01] MEDS: amLODIPine 5 MG TAB PO SCH (08:22)
[2019-08-01] MEDS: OMEPRAZOLE 20 MG CAP PO SCH ×2 (08:22→20:51)
[2019-08-01] MEDS: DULoxetine 20 MG CAP (CYMBALTA) PO SCH (08:22)
[2019-08-01] MEDS: ESCITALOPRAM OXALATE 10 MG TAB (LEXAPRO) PO SCH (08:22)
[2019-08-01] MEDS: METOPROLOL SUCC *XL* 25MG TAB (TopROL *XL*) PO SCH (08:22)
[2019-08-01] MEDS: MIRALAX *UNIT DOSE* 17GM PACKET PO SCH (08:23)
[2019-08-01] MEDS: MOM 30ML SUSPENSION UDC PO SCH (08:23)
[2019-08-01] MEDS: SODIUM CHLORIDE 0.9% NASAL GEL 15GM (AYR) SCH ×4 (08:27→20:53)
[2019-08-01 13:24] VITALS: BP 113/41
--- NOTE | 2019-08-01 14:30 | IPNPDOC ---
Text Note Date of Service The patient was seen on 08/01/19. NOTE Subjective: Patient complains of left distal leg swelling, started yesterday. No any acute events overnight, patient denies fever, chills, nausea, vomiting, chest pain, diarrhea or dysuria Objective: GENERAL APPEARANCE: not in apparent distress HEENT: Normocephalic, atraumatic. Mucous members moist and pink CARDIOVASCULAR: Regular rate and rhythm. No murmurs, rubs or gallops. Radial pul ses are intact. There is no lower extremity edema LUNGS: Diminished lung sounds ABDOMEN: Abdomen is soft and nontender. MUSCULOSKELETAL: Limited range of motion of the left knee, left distal leg significantly swollen compared to the right NEUROLOGICAL: Cranial nerves II-12 are grossly intact. Speech is not dysarthric Patient 74 years old female with past history of hypothyroidism, anxiety, depression, hypertension, sleep apnea presented hospital for planned left knee arthroplasty. Surgery was done today, patient denies any fever, chills, nausea, vomiting, diarrhea or dysuria. Left leg swelling Unclear etiology, most likely postoperatively due to lymphostasis I will proceed with Doppler ultrasound to rule out DVT CBC Hypertension Continue home medication Blood pressures under control Obstructive sleep apnea CPAP overnight Atrial fibrillation Heart rate is under control Patient was not on the anticoagulation therapy due to frequent fall Hypothyroidism Continue levothyroxine Depression continue Lexapro VS,Fishbone, I+O VS, Fishbone, I+O Vital Signs Date Time Temp Pulse Resp B/P (MAP) Pulse Ox O2 Delivery O2 Flow Rate FiO2 08/01/19 13:24 98.5 57 17 113/41 (65) 91 Room Air 07/31/19 20:51 2.0 07/28/19 11:28 100 I&O- Last 24 Hours up to 6 AM 08/01/19 05:59 Intake Total 920 ml Output Total 0 ml Balance 920 ml AMMY HOLLY DO Aug 01, 2019 14:30
[2019-08-01 15:35] LABS: BASO % 0.4 % (0.0-1.0); EOS # 0.2 10^3/uL (0.0-0.5); EOS % 2.3 % (0.0-3.0); HEMATOCRIT 32.7 % (36.0-47.0); LYMPH # 2.2 10^3/uL (1.5-5.0); LYMPH % 23.8 % (24.0-44.0); MEAN CORPUSCULAR HEMOGLOBIN 29.3 pg (27.0-33.0); MEAN CORPUSCULAR HGB CONC 30.6 g/dl (32.0-36.5); MEAN CORPUSCULAR VOLUME 95.9 fl (80.0-96.0); MONO # 0.8 10^3/uL (0.0-0.8); MONO % 8.2 % (0.0-5.0); NEUTROPHILS # 5.9 10^3/uL (1.5-8.5); PLATELET COUNT, AUTOMATED 239 10^3/uL (150-450); RED BLOOD COUNT 3.41 10^6/uL (4.00-5.40); WHITE BLOOD COUNT 9.1 10^3/uL (4.0-10.0)
--- NOTE | 2019-08-01 16:01 | REP ---
Left lower extremity deep vein duplex ultrasound: The deep veins demonstrate normal compression, normal Doppler color flow and normal Doppler waveforms with respiration and augmentation from the popliteal vein to the common femoral vein. Impression: There is no left lower extremity deep vein thrombus. However, greater saphenous vein reflux is noted for a duration of 4.3 seconds. The greater saphenous vein junction is dilated measuring up to 17.7 mm. Electronically Signed by Tera Irby MD 08/01/2019 03:52 P
[2019-08-01] MEDS: RIVAROXABAN 10 MG TAB (XARELTO) PO SCH (17:12)
[2019-08-01 22:00] VITALS: BP 147/62
[2019-08-02] MEDS: NORCO, ANEXSIA 5/325MG TABLET (HYDROcodone/ACETAMINOPHEN) PO PRN ×3 (03:40→13:04)
[2019-08-02 06:00] VITALS: BP 142/63
[2019-08-02] MEDS ORDERED: XARE10TA PO (06:10)
[2019-08-02] MEDS: LEVOTHYROXINE 150MCG TABLET (0.15MG) PO SCH (06:17)
[2019-08-02] MEDS: HumaLOG INSULIN (NovoLOG) PER UNIT SC SCH ×2 (08:34→12:38)
[2019-08-02] MEDS: amLODIPine 5 MG TAB PO SCH (08:35)
[2019-08-02] MEDS: LOSARTAN 50 MG TAB PO SCH (08:35)
[2019-08-02] MEDS: OMEPRAZOLE 20 MG CAP PO SCH (08:35)
[2019-08-02 08:36] VITALS: BP 144/68
[2019-08-02] MEDS: METOPROLOL SUCC *XL* 25MG TAB (TopROL *XL*) PO SCH (08:36)
[2019-08-02] MEDS: MOM 30ML SUSPENSION UDC PO SCH (08:37)
[2019-08-02] MEDS: DULoxetine 20 MG CAP (CYMBALTA) PO SCH (08:37)
[2019-08-02] MEDS: SODIUM CHLORIDE 0.9% NASAL GEL 15GM (AYR) SCH ×2 (08:37→12:42)
[2019-08-02] MEDS: ESCITALOPRAM OXALATE 10 MG TAB (LEXAPRO) PO SCH (08:37)
[2019-08-02] MEDS: MIRALAX *UNIT DOSE* 17GM PACKET PO SCH (08:37)
--- NOTE | 2019-08-02 11:55 | IPN ---
DATE: 08/02/2019 This morning she complains of 2 out of 10 pain, tolerable. She thinks that she sat on the chair too long. Now that she is on the bed she has 2 out of 10 pain, improved with hydrocodone. PHYSICAL EXAMINATION: VITAL SIGNS: Temperature 98.1, pulse 64, respiratory rate 18, blood pressure 144/68, pulse oximetry 96%. GENERAL: Awake, alert, oriented times three. Answering questions appropriately. No respiratory distress. No jugular venous distention (JVD) or thyromegaly. No cervical lymphadenopathy. HEART: S1, S2. Irregularly irregular. No murmurs, rubs or gallops. LUNGS: Clear to auscultation. No wheezing or rales. ABDOMEN: Soft, nontender, nondistended. Positive bowel sounds times four quadrants. EXTREMITIES: Left postoperative knee. LABORATORY DATA: 08/01/2019 laboratory data and 07/28/2019 metabolic panel have been reviewed. ASSESSMENT AND PLAN: This is a 74-year-old female with a history of sleep apnea, anxiety, depression, hypothyroidism, and atrial fibrillation not on anticoagulation due to recurrent falls, status post left knee replacement. 1. Left knee arthroplasty. Postoperative management per primary team, including deep vein thrombosis (DVT) prophylaxis, pain control, and bowel regimen. The patient is due to be discharged today to [facility]. 2. Hypertension. Blood pressures are well maintained. Continue on home medications. 3. Obstructive sleep apnea. CPAP overnight. 4. Atrial fibrillation. Rate is controlled. Not on anticoagulation due to recurrent falls. 5. Hypothyroidism. On chronic Synthroid. DISPOSITION: Discharge per primary team. [facility]ENTER[facility]
--- NOTE | 2019-08-02 14:22 | DSES ---
DATE OF ADMISSION: 07/28/2019 DATE OF DISCHARGE: 08/02/2019 ATTENDING PHYSICIAN: Dr. Leoncio Mari. ADMISSION DIAGNOSIS: Advanced left knee osteoarthritis. OTHER DIAGNOSES: Atrial fibrillation. Hypertension. Obstructive sleep apnea on CPAP. Hypothyroid. DISCHARGE DIAGNOSIS: Advanced left knee osteoarthritis status post left total knee arthroplasty. HISTORY: The patient is a 74-year-old female that had progressively worsening left knee pain and stiffness. She failed to improve with conservative measures. She continued to have symptoms with weightbearing activities and activities of daily living. She consented for an elective left total knee arthroplasty with Dr. Mari for her continued symptoms. OPERATION PERFORMED: Left total knee arthroplasty. HOSPITAL COURSE: The patient underwent a left total knee arthroplasty under general anesthesia which was uneventful. Her hospital course was without complication and she was up with physical therapy per their protocol, weightbearing as tolerated on the left lower extremity. The patient was discharged on oral pain medications and to resume her preoperative medications and diet. She will be attending acute rehabilitation. The patient will use her thromboembolic deterrent stockings and take her anticoagulant as directed to prevent deep venous thrombosis. The patient will followup in our office in 12-14 days for wound check and staple removal. She is encouraged to contact our office sooner if there is any increase in pain, redness, drainage, numbness or tingling in the extremity, fever greater than 101 degrees here any other concerns. Please see medical records for additional details.
== END 2019-08-02 13:30 | DRG 470 ==
LOC: M OR 07:13 → UNDODISIN 13:30 → M MS5PR 13:30
PROVIDERS: ADMIT Orthopaedic Surgery; ATTEND Orthopaedic Surgery
PROC: 0SRD0J9 Replacement of Left Knee Joint with Synthetic Substitute, Cemented, Open Approach (ICD-10-PCS; principal; 2019-07-28 09:00)
DX: M17.12 Unilateral primary osteoarthritis, left knee (principal); I47.2 Ventricular tachycardia; E03.9 Hypothyroidism, unspecified; F32.9 Major depressive disorder, single episode, unspecified; F41.9 Anxiety disorder, unspecified; I10 Essential (primary) hypertension; E78.5 Hyperlipidemia, unspecified; Z95.0 Presence of cardiac pacemaker; R42 Dizziness and giddiness; E66.9 Obesity, unspecified; I48.91 Unspecified atrial fibrillation; G47.33 Obstructive sleep apnea (adult) (pediatric); R91.8 Other nonspecific abnormal finding of lung field; E55.9 Vitamin D deficiency, unspecified; Z98.84 Bariatric surgery status; Z90.49 Acquired absence of other specified parts of digestive tract; Z96.651 Presence of right artificial knee joint; Z79.899 Other long term (current) drug therapy; Z96.643 Presence of artificial hip joint, bilateral; Z79.02 Long term (current) use of antithrombotics/antiplatelets; Z88.5 Allergy status to narcotic agent; Z88.6 Allergy status to analgesic agent; Z91.048 Other nonmedicinal substance allergy status; Z68.36 Body mass index [BMI] 36.0-36.9, adult